=== PATIENT | female | born 1935 | race Caucasian/White ===

== ENCOUNTER → 2017-01-24 | Outpatient (CLI) | payer OTHER, MEDICARE ==
--- NOTE | 2017-01-24 15:22 | MAMMOGRAPHY REPORT ---
BILATERAL DIGITAL SCREENING MAMMOGRAM WITH CAD: 01/24/2017 CLINICAL HISTORY: Routine screening. TECHNIQUE: Current study was also evaluated with a Computer Aided Detection (CAD) system. Bilatera l CC and MLO views were obtained. COMPARISON: Comparison is made to exams dated: 01/24/2016 mammogram, 01/20/2015 mammogram, 01/17/2014 m ammogram, 01/14/2013 mammogram, 01/14/2012 mammogram, and 01/09/2011 mammogram - [facility] enter. BREAST COMPOSITION: The tissue of both breasts is heterogeneously dense, which may obscure small mas ses. FINDINGS: No suspicious masses, calcifications, or areas of architectural distortion are noted in ei ther breast. There has been no significant interval change compared to prior exams. Scattered bilater al benign-appearing calcifications are not significantly changed. A linear scar marker denotes a sca r on the left central breast. Bilateral asymmetries are stable. A biopsy marker clip is again noted within the left superior breast. IMPRESSION: ACR BI-RADS CATEGORY 2: BENIGN There is no mammographic evidence of malignancy. A 1 year screening mammogram is recommended. The pa tient will receive written notification of the results. Approximately 10% of breast cancers are not detected with mammography. A negative mammographic report should not delay biopsy if a clinically suggestive mass is present. Charisse Doherty M.D. /:01/24/2017 12:10:05 Third Loader: Mina GARCIA)(B[place]), [facility] letter sent: Normal 1/2 BI-RADS Code: ACR BI-RADS Category 2: Benign
== END | disposition home or self-care (01) ==
LOC: C.MAMM 10:54
PROVIDERS: ATTEND Internal Medicine
DX: Z12.31 Encounter for screening mammogram for malignant neoplasm of breast (principal)

== ENCOUNTER → 2017-06-18 | Outpatient (CLI) | payer OTHER, MEDICARE ==
[2017-06-18 17:26] LABS: ALT/SGPT 23 U/L (12-78); AST/SGOT 23 U/L (15-37); BLOOD UREA NITROGEN 17 mg/dl (7-18); CALCIUM 10.2 mg/dl (8.5-10.1); CARBON DIOXIDE 31 mmol/L (21-32); CHLORIDE 100 mmol/L (98-107); CHOLESTEROL 138 mg/dl (0-200); CREATININE 0.94 mg/dl (0.60-1.20); GLUCOSE 100 mg/dl (70-99); POTASSIUM 4.5 mmol/L (3.5-5.1); SODIUM 137 mmol/L (136-145); TRIGLYCERIDES 86 mg/dl (0-150); VERY LOW DENSITY LIPOPROT CALC 17 mg/dl
[2017-06-18 17:31] LABS: BASO % 0.3 %; BASO ABS # 0.02 K/uL (0-0.2); COMPLETE YES; EOS % 1.5 %; HEMATOCRIT 42.4 % (37-47); IG% 0.2 %; LYMPH % 25.1 %; LYMPH ABS # 1.67 K/uL (1.2-3.4); MEAN CORPUSCULAR HEMOGLOBIN 32.5 pg (25-34); MEAN CORPUSCULAR HGB CONC 32.5 g/dl (32-36); MEAN PLATELET VOLUME 9.7 fL (7.4-10.4); MONO % 7.7 %; NEUT % 65.2 %; PLATELET COUNT 221 K/uL (130-400); RED BLOOD COUNT 4.24 M/uL (4.2-5.4); WHITE BLOOD COUNT 6.65 K/uL (4.8-10.8)
[2017-06-18 17:42] LABS: ALB/GLOB RATIO 1.1 (0.9-2); ALKALINE PHOSPHATASE 76 U/L (45-117); HDL CHOLESTEROL 68 mg/dl; LDL CHOLESTEROL CALCULATED 53 mg/dl
[2017-06-19 06:52] LABS: ESTIMATED AVERAGE GLUCOSE 137 mg/dl; HA1C FLAG Normal (Normal)
== END | disposition home or self-care (01) ==
LOC: C.LABBC 13:44
PROVIDERS: ATTEND Internal Medicine
DX: I48.0 Paroxysmal atrial fibrillation (principal); M81.0 Age-related osteoporosis without current pathological fracture

== ENCOUNTER 2021-05-17 14:23 | Observation (INO) ==
[2021-05-17 14:51] LABS: Basophils # (auto) 0.03 K/uL (0-0.2); Basophils % (auto) 0.4 %; Eosinophils # (auto) 0.15 K/uL (0-0.5); Eosinophils % (auto) 1.9 %; Hematocrit (blood only) 34.2 % (37-47); Hemoglobin 10.6 g/dL (12.0-16.0); Immature Granulocytes # (auto) 0.01 K/uL (0.00-0.02); Immature Granulocytes % (auto) 0.1 %; Lymphocytes # (auto) 1.82 K/uL (1.2-3.4); Lymphocytes % (auto) 22.9 %; Mean Corpuscular Hemoglobin 27.5 pg (25-34); Mean Corpuscular Volume 88.6 fL (80-100); Mean Platelet Volume 8.8 fL (7.4-10.4); Monocytes # (auto) 0.53 K/uL (0.11-0.59); Monocytes % (auto) 6.7 %; Neutrophils # (auto) 5.42 K/uL (1.4-6.5); Platelet Count 283 K/uL (130-400); RDW Coefficient of Variation 17.3 % (11.5-14.5); RDW Standard Deviation 56.4 fL (36.4-46.3); Red Blood Count 3.86 M/uL (4.2-5.4); White Blood Count 7.96 K/uL (4.8-10.8)
[2021-05-17 15:07] LABS: BUN Creatinine Ratio 21.6 (10-20); Calcium 11.1 mg/dl (8.5-10.1); Creatinine Clr Calc Pharmacy 24.7 ml/min; Est GFR (African American) 54.1 ml/min; Est GFR (Non-African American) 46.6 ml/min; Potassium 4.2 mmol/L (3.5-5.1)
[2021-05-17 15:10] LABS: Bilirubin,Total 0.6 mg/dl (0.2-1)
--- NOTE | 2021-05-17 15:34 | Electrocardiogram Report ---
Test Reason : Blood Pressure : / mmHG Vent. Rate : 066 BPM Atrial Rate : 197 BPM P-R Int : 000 ms QRS Dur : 092 ms QT Int : 418 ms P-R-T Axes : 000 -08 068 degrees QTc Int : 438 ms Atrial fibrillation Incomplete right bundle branch block Cannot rule out Inferior infarct , age undetermined Abnormal ECG No previous ECGs available Confirmed by Deacon Mckeon ([id number]) on 05/17/2021 3:33:33 PM Referred By: Confirmed By:Deacon Mckeon
--- NOTE | 2021-05-17 15:52 | XRay Report ---
SINGLE VIEW CHEST CLINICAL HISTORY: Abnormal coagulation studies. Elevated INR. FINDINGS: An AP, portable, upright chest radiograph is compared to study dated 03/23/2007. The heart i s enlarged noting atherosclerotic calcification of the thoracic aorta. The pulmonary vasculature is n oncongested. Chronic interstitial thickening is similar to previous. There is bibasilar scarring/atel ectasis. No airspace consolidation or large pleural effusion is identified. No pneumothorax is seen. The skeletal structures are osteopenic. The bony thorax is grossly intact. IMPRESSION: Cardiomegaly with no acute cardiopulmonary abnormality. ACT 112: Negative or not required by law. Electronically signed by: Curt Bradley M.D. 05/17/2021 3:50 PM
[2021-05-17 15:53] LABS: INR > 10.7 (0.9-1.1); Partial Thromboplastin Time 78.3 Seconds (21.0-31.0); Prothrombin Time > 90.0 Seconds (9.0-12.0)
--- NOTE | 2021-05-17 16:22 | CT Scan Report ---
HEAD CT NONCONTRAST CT DOSE: 537.48 mGy.cm HISTORY: INR>10, dizzy TECHNIQUE: Multiaxial CT images of the head were performed without the use of intravenous contrast. A utomated exposure control was utilized for this study. A dose lowering technique was utilized adheri ng to the principles of ALARA. Comparison: None. Findings: The paranasal sinuses and mastoid air cells are clear. The calvarium and skull base are int act. There is no mass, hematoma, midline shift, acute infarct. White matter hypodensity is nonspecifi c but suggestive of microvascular ischemic change. The ventricles and sulci demonstrate mild age-rela scooter involutional changes. Old punctate lacunar infarct within the left cerebellar hemisphere. Impression: No acute intracranial abnormality. Atrophy and microvascular ischemic changes. ACT 112: Negative or not required by law. Electronically signed by: Bakari Méndez M.D. 05/17/2021 4:21 PM
[2021-05-17] MEDS ORDERED: PHYTONADIONE 5 MG in SODIUM CHLORIDE 0.9% 50 ML IV ONE (16:24)
--- NOTE | 2021-05-17 16:39 | Emergency Department Note ---
Impression & Plan Supratherapeutic INR, Contusion of oral cavity, initial encounter, Atrial fibrillation, Blood in mouth of unknown source ED Provider Note Provider: Hao Heredia MD DATE OF SERVICE: 05/17/2021 CHIEF COMPLAINT: Elevated blood levels HISTORY OF PRESENT ILLNESS: Patient is a 86-year-old female history of diabetes, paroxysmal atrial fibrillation on Coumadin, cognitive decline presenting after blood work today revealed a significantly elevated INR. 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 Over the last 2 to 3 months family members have been taking turns assisting her at her house where she lives by herself. They are working to get her into assisted living next week. They have been assisting her with her medications over the past month or 2. It does not appear that the patient's had any INR checks in approximately 10 months. Patient's also been having a little bruising of the left lower lip and they were concerned about a dental infection of one of her left lower teeth in this area and she is completing a week of penicillin today. Patient herself has memory deficits but is pleasant and no traumas been reported. Patient denies any pain at this time. Daughter reports the patient has been having some increased episodes of epistaxis over the last several weeks as well as some light pink hematuria over the weekend. Patient had cataract surgery without incident yesterday but has some bruising from the IV site in her arm. Patient has also been on 81 mg aspirin. REVIEW OF SYSTEMS: A total of 10 review of systems was obtained and negative except as stated above in the HPI. PAST MEDICAL HISTORY: As noted above MEDICATIONS: Reviewed home medications with the patient and her daughter SOCIAL HISTORY: Has been residing at home by herself more recently with some family assistance planning to move to assisted living next week PHYSICAL EXAM: GENERAL: alert and oriented in no acute distress on stretcher Head: normocephalic with some slight bruising of the left lower lip without large hematoma or laceration. EYES: No injection, discharge or icterus. No bleeding noted or subconjunctival hemorrhage. PERRL NECK: Trachea midline. Supple. ENT: Mucous membranes pink and moist with some slight red blood noted in the lower mouth but no clear source of active bleeding. Likely this is slowly oozing and there is some slight blood dripping from the corner of her mouth. Some contusions noted to the tongue but no clear laceration. Poor dentition in general with one of the left lower incisors in poor condition. LUNGS: Airway patent. No retractions. Breath sounds clear HEART: Regular rate and rhythm. No chest wall tenderness ABDOMEN: Soft and non-tender, without guarding or rebound. SKIN: Acyanotic, warm, dry EXTREMITIES: Without swelling, tenderness or deformity however with some bruising at the right AC from IV site yesterday NEUROLOGICAL: No focal deficits. No aphasia. No facial droop or slurred speech. Ambulatory. EK bpm atrial fibrillation. Incomplete right bundle branch block. No acute ST segment elevation noted. QTc 438. CONTINUOUS CARDIAC MONITORING: was ordered and showed a heart rate of 60s to 70s bpm in atrial fibrillation Patient's laboratory studies and imaging reviewed. Differential includes Infection, dehydration, metabolic abnormality, hypo/hyperglycemia, electrolyte disturbance, anemia, hypoxia, cardiac sources, intracerebral event, toxicologic, neurologic, as well as other pathologies. IMPRESSION/MEDICAL DECISION MAKING: Question some component of the recent antibiotic causing the iron elevation as well as lack of close testing of the INR is causing significant elevation. Patient does have little bit of slight blood oozing as well some bruising of the tongue noted in the mouth and some bruising of the lower lip. Unknown exact source that is slowly losing but is minimal and don't believe needs surgical intervention. Believe monitoring would be adequate. CT head without acute intracranial bleeding. There is some component of chronic dizziness from reading PCP notes in the past but likely no intracranial bleeding given this complaint and her elevated INR today. Patient's hemoglobin slightly dropped (compared to 02/14) but has been having episodes of hematuria and epistaxis at various points. Patient is stable at this point but a significant concerns regarding care at this time and concerns about her safety to go home. IV Vitamin K was given to help with reversal. No life-threatening bleed at this point so do not feel Kcentra is indicated with her age and underlying cardiac disease somewhat hesitant for FFP unless needed. Seems as the patient needs to closely reestablish care and INR monitoring. Do not see evidence of large dental abscess at this point in her mouth but a poorly looking left lower incisor; I doubt an abscess here but likely in require further dental care/likely extraction and may be source of infection in the future. Don't feel additional antibiotics are indicated at this time. Discussed with patient and daughter findings. Feel observation overnight given the situation may be in her best interest and the hospitalist was contacted. Daughter is quite hesitant about [place] home given the blood thinning and the blood oozing from her mouth at times. DIAGNOSIS: Elevated INR, tongue contusion, bloody mouth DISPOSITION: Hospitalist will evaluate Patient was agreeable with this plan. Past Med/Surg History Medical History Adult situational stress disorder Atrial flutter Cardiomyopathy, dilated, nonischemic Dementia occas forgetful and daughter is staying with her for a few weeks Esophageal dysmotility Hyperlipidemia Malnutrition daughter is staying with her and family is planning next step she can not be alone Mitral stenosis Osteoporosis Paroxysmal A-fib Type 2 diabetes mellitus Surgical History H/O colonoscopy H/O tooth extraction History of cataract surgery Family History Father Hypertension Gastric cancer Mother Hypertension Social History Smoking Status: Never smoker Second Hand Exposure: No; Hx Alcohol Use: No Hx Substance Use: No Preferred Language: Tristanian Communication Ability: Effective Visual Impairment: Limited Hearing Ability: Normal Escrow Clerk Required: No Beliefs That Will Affect Care: None marital status: Current Living Situation: Family Current Living Situation Comment: nephew lives with her downstairs but does not really pay attention current occupational status: retired Feels Safe at Home: Yes Childhood Exposure to Second-Hand Smoke: No caffeine: Yes Dental Care, Regularly: Yes Physical Activity Frequency: Does not Exercise Seatbelt Use: always Sunscreen Use: Yes Do you think of yourself as: straight/heterosexual Allergies Allergies Allergy/AdvReac Type Severity Reaction Status Date / Time simvastatin [From Zocor] Allergy Mild myalgia Verified 05/17/21 16:49 Home Meds Home Medications Medication Instructions Recorded Confirmed amoxicillin 500 mg capsule 500 mg PO .COMPLEX cap 04/15/19 05/17/21 calcium carbonate 600 mg (1,500 1 tab PO QAM tab 04/15/19 05/17/21 mg)-vitamin D3 200 unit tablet donepezil 5 mg tablet 5 mg PO QAM 04/12/21 05/17/21 furosemide 20 mg tablet 20 mg PO QAM 04/12/21 05/17/21 metoprolol succinate 100 mg 100 mg PO QAM 04/12/21 05/17/21 tablet,extended release 24 hr sertraline 25 mg tablet 25 mg PO QAM 04/12/21 05/17/21 metformin 500 mg tablet,extended 500 mg PO UD tab 04/18/21 05/17/21 release 24 hr aspirin 81 mg tablet,delayed 81 mg PO DAILY 05/17/21 05/17/21 release (Aspirin Low Dose) Previous Rx's Medication Instructions Recorded warfarin 5 mg tablet 5 mg PO .COMPLEX #90 tab 05/14/21 atorvastatin 20 mg tablet 10 mg PO QAM 7 Days #4 tab 05/16/21 Results & Data (ED) Vital Signs Vital Signs - 24 hr 05/17/21 14:32 05/17/21 15:39 05/17/21 15:45 Temperature 36.0 C L Temperature Source Oral Pulse Rate 67 59 L 65 Pulse Rate from SpO2 Sensor 57 L 61 Pulse Rhythm Regular Respiratory Rate 18 20 26 H Respiratory Effort / Characteristics Non-Labored Respiratory Depth Normal Blood Pressure 145/75 H Blood Pressure Mean 98 Pulse Oximetry 100 98 98 Sepsis Recent Fever Within 48 Hours No Sepsis New/Unexplained Change in Mental Status N/A Sepsis Action Taken by Nursing No Action Required 05/17/21 16:00 05/17/21 16:20 05/17/21 16:30 Temperature Temperature Source Pulse Rate 68 76 74 Pulse Rate from SpO2 Sensor 67 76 Pulse Rhythm Respiratory Rate 20 18 11 L Respiratory Effort / Characteristics Respiratory Depth Blood Pressure Blood Pressure Mean Pulse Oximetry 98 94 Sepsis Recent Fever Within 48 Hours Sepsis New/Unexplained Change in Mental Status Sepsis Action Taken by Nursing 05/17/21 16:45 05/17/21 17:00 05/17/21 17:15 Temperature 36.8 C Temperature Source Pulse Rate 69 61 70 Pulse Rate from SpO2 Sensor 65 68 62 Pulse Rhythm Respiratory Rate 22 18 15 Respiratory Effort / Characteristics Respiratory Depth Blood Pressure 126/73 Blood Pressure Mean 90 Pulse Oximetry 95 94 98 Sepsis Recent Fever Within 48 Hours Sepsis New/Unexplained Change in Mental Status Sepsis Action Taken by Nursing 05/17/21 17:30 05/17/21 17:45 Temperature 36.8 C Temperature Source Pulse Rate 65 67 Pulse Rate from SpO2 Sensor 66 Pulse Rhythm Respiratory Rate 15 17 Respiratory Effort / Characteristics Respiratory Depth Blood Pressure 157/55 H Blood Pressure Mean 89 Pulse Oximetry 97 Sepsis Recent Fever Within 48 Hours Sepsis New/Unexplained Change in Mental Status Sepsis Action Taken by Nursing Laboratory Data Result diagrams: 05/17/21 14:44 05/17/21 14:44 Lab Results 05/17/21 05/17/21 05/17/21 Range/Units 14:44 14:44 14:44 WBC 7.96 (4.8-10.8) K/uL RBC 3.86 L (4.2-5.4) M/uL Hgb 10.6 L (12.0-16.0) g/dL Hct 34.2 L (37-47) % MCV 88.6 (80-100) fL MCH 27.5 (25-34) pg MCHC 31.0 L (32-36) g/dL RDW Std Deviation 56.4 H (36.4-46.3) fL RDW Coeff of Marley 17.3 H (11.5-14.5) % Plt Count 283 (130-400) K/uL MPV 8.8 (7.4-10.4) fL Immature Gran % (Auto) 0.1 % Neut % (Auto) 68.0 % Lymph % (Auto) 22.9 % Crook % (Auto) 6.7 % Eos % (Auto) 1.9 % Baso % (Auto) 0.4 % Neut # (Auto) 5.42 (1.4-6.5) K/uL Lymph # (Auto) 1.82 (1.2-3.4) K/uL Crook # (Auto) 0.53 (0.11-0.59) K/uL Eos # (Auto) 0.15 (0-0.5) K/uL Baso # (Auto) 0.03 (0-0.2) K/uL Immature Gran # (Auto) 0.01 (0.00-0.02) K/uL PT > 90.0 H (9.0-12.0) Seconds INR > 10.7 H* (0.9-1.1) APTT 78.3 H* (21.0-31.0) Seconds PTT Ratio 3.0 Sodium 137 (136-145) mmol/L Potassium 4.2 (3.5-5.1) mmol/L Chloride 100 (98-107) mmol/L Carbon Dioxide 29 (21-32) mmol/L Anion Gap 8.0 (3-11) BUN 23 H (7-18) mg/dl Creatinine 1.07 (0.6-1.2) mg/dl Est Cr Clr Drug Dosing 24.7 ml/min Est GFR ( Amer) 54.1 ml/min Est GFR (Non-Af Amer) 46.6 ml/min BUN/Creatinine Ratio 21.6 H (10-20) Glucose 136 H (70-99) mg/dl Calcium 11.1 H (8.5-10.1) mg/dl Total Bilirubin 0.6 (0.2-1) mg/dl AST 36 (15-37) U/L ALT 34 (12-78) U/L Alkaline Phosphatase 64 (45-117) U/L Total Protein 8.0 (6.4-8.2) gm/dl Albumin 4.0 (3.4-5.0) gm/dl Globulin 4.0 (2.5-4.0) gm/dl Albumin/Globulin Ratio 1.0 (0.9-2) TSH 1.850 (0.300-4.500) uIu/ml COVID-19 Eval Order SARS-CoV-2 (PCR) (Negative) 05/17/21 05/17/21 Range/Units 16:41 16:41 WBC (4.8-10.8) K/uL RBC (4.2-5.4) M/uL Hgb (12.0-16.0) g/dL Hct (37-47) % MCV (80-100) fL MCH (25-34) pg MCHC (32-36) g/dL RDW Std Deviation (36.4-46.3) fL RDW Coeff of Marley (11.5-14.5) % Plt Count (130-400) K/uL MPV (7.4-10.4) fL Immature Gran % (Auto) % Neut % (Auto) % Lymph % (Auto) % Crook % (Auto) % Eos % (Auto) % Baso % (Auto) % Neut # (Auto) (1.4-6.5) K/uL Lymph # (Auto) (1.2-3.4) K/uL Crook # (Auto) (0.11-0.59) K/uL Eos # (Auto) (0-0.5) K/uL Baso # (Auto) (0-0.2) K/uL Immature Gran # (Auto) (0.00-0.02) K/uL PT (9.0-12.0) Seconds INR (0.9-1.1) APTT (21.0-31.0) Seconds PTT Ratio Sodium (136-145) mmol/L Potassium (3.5-5.1) mmol/L Chloride (98-107) mmol/L Carbon Dioxide (21-32) mmol/L Anion Gap (3-11) BUN (7-18) mg/dl Creatinine (0.6-1.2) mg/dl Est Cr Clr Drug Dosing ml/min Est GFR ( Amer) ml/min Est GFR (Non-Af Amer) ml/min BUN/Creatinine Ratio (10-20) Glucose (70-99) mg/dl Calcium (8.5-10.1) mg/dl Total Bilirubin (0.2-1) mg/dl AST (15-37) U/L ALT (12-78) U/L Alkaline Phosphatase (45-117) U/L Total Protein (6.4-8.2) gm/dl Albumin (3.4-5.0) gm/dl Globulin (2.5-4.0) gm/dl Albumin/Globulin Ratio (0.9-2) TSH (0.300-4.500) uIu/ml COVID-19 Eval Order Covid19 at [facility] SARS-CoV-2 (PCR) NEGATIVE (Negative) Administered Medications Discontinued Medications Phytonadione 5 mg/ Sodium (Chloride) 50.5 mls @ 101 mls/hr IV ONE ONE Stop: 05/17/21 16:53 Last Infusion: 05/17/21 17:54 Dose: 0 mls/hr Documented by: [id number] Admin: 05/17/21 17:20 Dose: 101 mls/hr Documented by: [id number] Imaging Data Radiologist's Impression: Chest X-Ray 05/17/21 14:38 SINGLE VIEW CHEST CLINICAL HISTORY: Abnormal coagulation studies. Elevated INR. FINDINGS: An AP, portable, upright chest radiograph is compared to study dated 03/23/2007. The heart is enlarged noting atherosclerotic calcification of the thoracic aorta. The pulmonary vasculature is noncongested. Chronic interstitial thickening is similar to previous. There is bibasilar scarring/atelectasis. No airspace consolidation or large pleural effusion is identified. No pneumothorax is seen. The skeletal structures are osteopenic. The bony thorax is grossly intact. IMPRESSION: Cardiomegaly with no acute cardiopulmonary abnormality. ACT 112: Negative or not required by law. Electronically signed by: Curt Bradley M.D. 05/17/2021 3:[address] 05/17/21 15:[address] DOSE: 537.48 mGy.cm HISTORY: INR>10, dizzy TECHNIQUE: Multiaxial CT images of the head were performed without the use of intravenous contrast. Automated exposure control was utilized for this study. A dose lowering technique was utilized adhering to the principles of ALARA. Comparison: None. Findings: The paranasal sinuses and mastoid air cells are clear. The calvarium and skull base are intact. There is no mass, hematoma, midline shift, acute infarct. White matter hypodensity is nonspecific but suggestive of microvascular ischemic change. The ventricles and sulci demonstrate mild age-related involutional changes. Old punctate lacunar infarct within the left cerebellar hemisphere. Impression: No acute intracranial abnormality. Atrophy and microvascular ischemic changes. ACT 112: Negative or not required by law. Electronically signed by: Bakari Méndez M.D. 05/17/2021 4:21 PM Discharge Plan Visit Data Chief Complaint: Abnormal Labs/Diagnostic Testing Stated Complaint: ELEVATED INR 10.7 ED Provider: Hao Heredia Discharge Problem: Supratherapeutic INR, Contusion of oral cavity, initial encounter, Atrial fibrillation, Blood in mouth of unknown source Patient Disposition: Being Evaluated by Hospitalist Forms Stand Alone Forms: My [facility] [employer] Prescriptions Prescriptions: No Action warfarin 5 mg tablet 5 mg PO .COMPLEX Qty: 90 RF: 3 atorvastatin 20 mg tablet 10 mg PO QAM 7 Days Qty: 4 RF: 0 calcium carbonate-vitamin D3 600 mg(1,500mg) -200 unit tablet 1 tab PO QAM RF: 0 amoxicillin 500 mg capsule 500 mg PO .COMPLEX RF: 0 metformin 500 mg tablet extended release 24 hr 500 mg PO UD RF: 0 donepezil 5 mg tablet 5 mg PO QAM RF: 0 metoprolol succinate 100 mg tablet extended release 24 hr 100 mg PO QAM RF: 0 sertraline 25 mg tablet 25 mg PO QAM RF: 0 furosemide 20 mg tablet 20 mg PO QAM RF: 0 aspirin [Aspirin Low Dose] 81 mg Tablet,Delayed Release (Dr/Ec) 81 mg PO DAILY RF: 0 Referrals Referrals: Rohan Worthy MD [Primary Care Provider] - Discharge Problem: Atrial fibrillation Qualifiers: Atrial fibrillation type: unspecified Qualified Code(s): I48.91 - Unspecified atrial fibrillation
[2021-05-17 16:42] LABS: Thyroid Stimulating Hormone 1.85 uIu/ml (0.300-4.500)
--- NOTE | 2021-05-17 17:44 | History & Physical Report ---
Date of Service May 17, 2021 Assessment & Plan (1) Supratherapeutic INR: Plan: 86 y/o female w/ pAF on warfarin who presents w/ supratherapeutic INR 10, mostly asymptomatic. Stable. - recent course of amox may be contributory. Patient also has not checked INR in 10 months. - monitor clinically. check INR in AM. If worsened INR or new symptoms recheck cbc and consider Kcentra. Kcentra deferred because of CHF and age. - fall precautions - hold home baby asa. (2) Atrial fibrillation: Plan: - hold home warfarin. follow CBC, INR - continue home regimen for rate control (3) Dysphagia, oropharyngeal phase: Plan: - chronic, per patient's daughter, no concerns for aspiration (4) Type 2 diabetes mellitus: Plan: - last A1c 8.1 02/20/21. BSGs 136 this admission - AM labs and check BSG qhs - continue home metformin (5) Status post cataract surgery: Plan: - 05/16/21 L cataract surgery - eye shield while sleeping - Hnnr-Vwnr-Mmyrm 1/0.5/0.1% 4 times a day for first week after the surgery (6) Dental infection: Plan: - noted on exam. mild. completed abx course - pain is controlled. denies pain. (7) Contusion of oral cavity, initial encounter: Plan: - noted on exam. mild. (8) Hyperparathyroidism: Plan: - slightly elevated Ca, stable. CMP in AM (9) Cardiomyopathy, dilated, nonischemic: Plan: - chronic, stable; no chest pain and not hypervolemic on exam - Strict Is and Os. Monitor volume status clinically and avoid volume overload. - 04/24/21 echo w/ EF 35%, moderate MS, moderate MR. Inferoposterior akinesis at base and mid ventricular level. No significant change overall from 05/17/19 echo. - check trop in AM (10) Dementia: Plan: - continue home Donezepil (11) Hyperlipidemia: Plan: - continue home statin (12) Malnutrition: Plan: - dietary consult Plan: FEN/GI: DM2 diet, soft, easy to chew. No IV fluids. code: full ppx: SCDs only. Hold chemoppx. dispo: med/surg tele. PT/OT dispo planning (directly to assisted living? vs short term SNF/rehab) History of Present Illness Chief Complaint: elevated INR Primary Care Provider: Rohan Worthy MD Xenia Tee is an 86 y/o female w/ PMHx of DM2, pAF on 5mg daily warfarin, ischemic CMP, hyperparathyroidism, and mild cognitive impairment who presents w/ supratherapeutic INR to >10.7 noted at outpatient lab today. Her INR was last checked 10 months ago and she just finished a 7 day course of amoxicillin for dental infection today. Patient has been relatively asymptomatic. She has had months of mild intermittent epistaxis. Last week, she had some pink-tinged urine. She also noted some bruising at her lip and some minor bleeding of her lip x 1 week, but does have an ongoing dental infection. No bloody stool/melena or hematopsysis. No pain in her mouth. Last warfarin (5 mg daily) and home meds was this AM. She has had several months of progressive poor care of self. Has had family members alternate taking care of her x 2 months (17/02 care), so she has not missed any medications. Patient has as assisted living arranged and plans to move as early as next week. Has wheeled walker at home and endorses some chronic malnutrition and physical deconditioning. She has had mild fatigue x 1 week, but otherwise feels well and denies other complaints. Hx was obtained from patient and daughter at bedside. ED course: s/p vit K 5mg IV. Allergies Allergy/AdvReac Type Severity Reaction Status Date / Time simvastatin [From Zocor] Allergy Mild myalgia Verified 05/17/21 16:49 Home Medications Medication Instructions Recorded Confirmed Type amoxicillin 500 mg capsule 500 mg PO .COMPLEX cap 04/15/19 05/17/21 History calcium carbonate 600 mg (1,500 1 tab PO QAM tab 04/15/19 05/17/21 History mg)-vitamin D3 200 unit tablet donepezil 5 mg tablet 5 mg PO QAM 04/12/21 05/17/21 History furosemide 20 mg tablet 20 mg PO QAM 04/12/21 05/17/21 History metoprolol succinate 100 mg 100 mg PO QAM 04/12/21 05/17/21 History tablet,extended release 24 hr sertraline 25 mg tablet 25 mg PO QAM 04/12/21 05/17/21 History metformin 500 mg tablet,extended 500 mg PO UD tab 04/18/21 05/17/21 History release 24 hr warfarin 5 mg tablet 5 mg PO .COMPLEX #90 tab 05/14/21 05/17/21 Rx atorvastatin 20 mg tablet 10 mg PO QAM 7 Days #4 tab 05/16/21 05/17/21 Rx aspirin 81 mg tablet,delayed 81 mg PO DAILY 05/17/21 05/17/21 History release (Aspirin Low Dose) Past Med/Surg History Medical History Adult situational stress disorder Atrial flutter Cardiomyopathy, dilated, nonischemic Dementia occas forgetful and daughter is staying with her for a few weeks Esophageal dysmotility Hyperlipidemia Malnutrition daughter is staying with her and family is planning next step she can not be alone Mitral stenosis Osteoporosis Paroxysmal A-fib Type 2 diabetes mellitus Surgical History H/O colonoscopy H/O tooth extraction History of cataract surgery Family History Father Hypertension Gastric cancer Mother Hypertension Social History Smoking Status: Never smoker Second Hand Exposure: No; Do You Dip or Chew Tobacco: No; Hx Alcohol Use: No Hx Substance Use: No Preferred Language: Yakut Communication Ability: Effective Visual Impairment: Limited Hearing Ability: Normal Breakfast And Room Attendant Required: No Beliefs That Will Affect Care: None marital status: Current Living Situation: Alone Current Living Situation Comment: nephew lives with her downstairs but does not really pay attention current occupational status: retired Other Information That Helps Us Care for You: No Feels Safe at Home: Yes Safety Concerns: Feels Safe At This Time Childhood Exposure to Second-Hand Smoke: No caffeine: Yes Dental Care, Regularly: Yes Physical Activity Frequency: Does not Exercise Seatbelt Use: always Sunscreen Use: Yes Do you think of yourself as: straight/heterosexual Assistive Devices: Cane Review of Systems Review of Systems: All systems reviewed & are unremarkable except as noted in HPI & below Constitutional: Denies fever, chills Eyes: Denies blurry vision, vision changes ENT: Denies sore throat, sinus pain Cardiovascular: Denies chest pain, palpitations Respiratory: Denies shortness of breath Gastrointestinal: Denies abdominal pain, nausea, vomiting, constipation, diarrhea Genitourinary: Denies urinary symptoms including dysuria Musculoskeletal: Denies weakness, muscle aches/pain, joint aches/pain Neurological: Denies headache, numbness, tingling, focal weakness Physical Exam Physical Exam: General: Grossly A&Ox3 (forgot context). NAD. Cooperative. Does not appear confused. Frail/thin habitus. Chest wall rib bones visible. HEENT: Atraumatic, normocephalic. EOMI. Mild ecchymosis at lower left lip. Mild dried blood at right lower lip edge. Poor dentition. L lower mouth has tooth w/ bottom part of tooth w/ white discoloration. L upper tooth has black color/darkening. No pain w/ palpation of jaw. Pulm: CTAB. -wheezes, -rales, -rhonchi. No respiratory distress. Cardiac: IIR,, not tachycardic. -mrg. Radial pulses intact and symmetrical. No LE edema, very trace Abdominal: Nontender, nondistended, soft. Neuro: CN II-XII intact. Normal strength of extremities. Results & Data Results & Data ([facility]) Vital Signs (Past 12 Hours) Vital Signs Temp Pulse Resp BP Pulse Ox 05/17/21 14:32 36.0 C L 67 18 145/75 H 100 Laboratory Results labs: no leukocytosis. Hb 10.6 vs 12.2 02/20/21. Plts ok 283. INR 10.7. electrolytes ok. Ca 11.1H. liver panel wnl. TSH wnl. covid neg. UA ordered Cardiac Enzymes 05/17/21 Range/Units 14:44 AST 36 (15-37) U/L Coagulation 05/17/21 Range/Units 14:44 PT > 90.0 H (9.0-12.0) Seconds APTT 78.3 H* (21.0-31.0) Seconds CBC 05/17/21 Range/Units 14:44 WBC 7.96 (4.8-10.8) K/uL RBC 3.86 L (4.2-5.4) M/uL Hgb 10.6 L (12.0-16.0) g/dL Hct 34.2 L (37-47) % Plt Count 283 (130-400) K/uL Neut # (Auto) 5.42 (1.4-6.5) K/uL Lymph # (Auto) 1.82 (1.2-3.4) K/uL [place] # (Auto) 0.53 (0.11-0.59) K/uL Eos # (Auto) 0.15 (0-0.5) K/uL Baso # (Auto) 0.03 (0-0.2) K/uL Comprehensive Metabolic Panel 05/17/21 Range/Units 14:44 Sodium 137 (136-145) mmol/L Potassium 4.2 (3.5-5.1) mmol/L Chloride 100 (98-107) mmol/L Carbon Dioxide 29 (21-32) mmol/L BUN 23 H (7-18) mg/dl Creatinine 1.07 (0.6-1.2) mg/dl Glucose 136 H (70-99) mg/dl Calcium 11.1 H (8.5-10.1) mg/dl AST 36 (15-37) U/L ALT 34 (12-78) U/L Alkaline Phosphatase 64 (45-117) U/L Total Protein 8.0 (6.4-8.2) gm/dl Albumin 4.0 (3.4-5.0) gm/dl Intake and Output 05/17/21 05/17/21 05/17/21 06:59 14:59 22:59 Intake Total 50.5 / 50.5 Balance 50.5 / 50.5 Intake: IV 50.5 / 50.5 Phytonadione 5 mg In Sodium 50.5 / 50.5 Chloride 0.9% 50 ml @ 101 mls/ hr IV ONE ONE Rx#:[id number] Other: Weight 42.3 kg Patient Weight 05/18/21 06:59 Weight 42.3 kg Diagnostic Findings Chest X-Ray 05/17/21 14:38 SINGLE VIEW CHEST CLINICAL HISTORY: Abnormal coagulation studies. Elevated INR. FINDINGS: An AP, portable, upright chest radiograph is compared to study dated 03/23/2007. The heart is enlarged noting atherosclerotic calcification of the thoracic aorta. The pulmonary vasculature is noncongested. Chronic interstitial thickening is similar to previous. There is bibasilar scarring/atelectasis. No airspace consolidation or large pleural effusion is identified. No pneumothorax is seen. The skeletal structures are osteopenic. The bony thorax is grossly i ntact. IMPRESSION: Cardiomegaly with no acute cardiopulmonary abnormality. ACT 112: Negative or not required by law. Electronically signed by: Curt Bradley M.D. 05/17/2021 3:[address] 05/17/21 15:[address] CT DOSE: 537.48 mGy.cm HISTORY: INR>10, dizzy TECHNIQUE: Multiaxial CT images of the head were performed without the use of i ntravenous contrast. Automated exposure control was utilized for this study. A dose lowering technique was utilized adhering to the principles of ALARA. Comparison: None. Findings: The paranasal sinuses and mastoid air cells are clear. The calvarium and skull base are intact. There is no mass, hematoma, midline shift, acute infarct. White matter hypodensity is nonspecific but suggestive of microvascular ischemic change. The ventricles and sulci demonstrate mild age-related involutional changes. Old punctate lacunar infarct within the left cerebellar hemisphere. Impression: No acute intracranial abnormality. Atrophy and microvascular ischemic changes. ACT 112: Negative or not required by law. Electronically signed by: Bakari Méndez M.D. 05/17/2021 4:21 PM ECG Additional Comments: Vent. Rate : 066 BPM Atrial Rate : 197 BPM P-R Int : 000 ms QRS Dur : 092 ms QT Int : 418 ms P-R-T Axes : 000 -08 068 degrees QTc Int : 438 ms Atrial fibrillation Incomplete right bundle branch block Cannot rule out Inferior infarct , age undetermined Abnormal ECG No previous ECGs available Confirmed by Deacon Mckeon ([id number]) on 05/17/2021 3:33:33 PM Code Status & VTE Plan Code Status full VTE Prophylaxis Plan VTE Prophylaxis will be ordered: Yes Reason for no VTE drug order: Contraindicated Supervising Physician Co-Signing Physician Notes 86 yo female is seen and examined at bedside. During face to face encounter with patient, obtained a history and physical examination. Discussed case with Dr. Contreras and answered all of the patient's questions. I reviewed above note and agree with it. Patient will be admitted with a supratherapeutic INR. Patient will closely monitor hemoglobin. Will not reorder any vitamin K. will need to discuss with case resolution specialist and family if she has enough support at home. May need to have family handle her medications due to short term memory issures. Resident Activity Tracking Resident Involvement: Resident Care Provided Care Provided: Adult Hospital Medicine (1) Atrial fibrillation Atrial fibrillation type: unspecified Qualified Code(s): I48.91 - Unspecified atrial fibrillation
[2021-05-17] MEDS ORDERED: ACETAMINOPHEN 325 MG TAB PO PRN (23:21)
[2021-05-17] MEDS ORDERED: POLYETHYLENE (MIRALAX) 17 GM PACK PO PRN (23:21)
[2021-05-17] MEDS ORDERED: ONDANSETRON INJ 2 MG/ML 2 ML VIAL IV PRN (23:21)
[2021-05-17] MEDS: NON-FORMULARY MEDICATION SCH (23:42)
[2021-05-18] MEDS: NON-FORMULARY MEDICATION SCH ×3 (06:32→18:02)
[2021-05-18 08:29] LABS: Basophils # (auto) 0.03 K/uL (0-0.2); Basophils % (auto) 0.4 %; Eosinophils # (auto) 0.18 K/uL (0-0.5); Eosinophils % (auto) 2.4 %; Hematocrit (blood only) 29.5 % (37-47); Hemoglobin 9.1 g/dL (12.0-16.0); Lymphocytes # (auto) 1.31 K/uL (1.2-3.4); Lymphocytes % (auto) 17.4 %; Mean Corpuscular Hemoglobin 27.6 pg (25-34); Mean Corpuscular Hgb Conc 30.8 g/dL (32-36); Mean Corpuscular Volume 89.4 fL (80-100); Mean Platelet Volume 8.8 fL (7.4-10.4); Monocytes # (auto) 0.52 K/uL (0.11-0.59); Monocytes % (auto) 6.9 %; Neutrophils # (auto) 5.47 K/uL (1.4-6.5); Neutrophils % (auto) 72.9 %; Platelet Count 243 K/uL (130-400); RDW Coefficient of Variation 17.4 % (11.5-14.5); RDW Standard Deviation 57.2 fL (36.4-46.3); White Blood Count 7.51 K/uL (4.8-10.8)
[2021-05-18 08:42] LABS: INR 1.7 (0.9-1.1); Partial Thromboplastin Ratio 1.2; Partial Thromboplastin Time 31.3 Seconds (21.0-31.0); Prothrombin Time 16.6 Seconds (9.0-12.0)
[2021-05-18] MEDS ORDERED: FUROSEMIDE 20 MG TAB PO SCH (09:00)
[2021-05-18] MEDS ORDERED: METOPROLOL SUCC 25MG EXT REL TAB PO SCH (09:00)
[2021-05-18] MEDS ORDERED: DONEPEZIL HCL 5 MG TAB PO SCH (09:00)
[2021-05-18] MEDS ORDERED: metFORMIN HCL ER 500 MG TABCR PO SCH ×2 (09:00→17:00)
[2021-05-18] MEDS ORDERED: ATORVASTATIN 10 MG TAB PO SCH (09:00)
[2021-05-18] MEDS ORDERED: SERTRALINE HCL 50 MG TABLET PO SCH (09:00)
[2021-05-18 09:15] LABS: Alanine Aminotransferase 25 U/L (12-78); Albumin Globulin Ratio 0.9 (0.9-2); Albumin Level 2.9 gm/dl (3.4-5.0); Alkaline Phosphatase 53 U/L (45-117); Aspartate Aminotransferase 27 U/L (15-37); BUN Creatinine Ratio 24.7 (10-20); Bilirubin,Total 1.1 mg/dl (0.2-1); Blood Urea Nitrogen 19 mg/dl (7-18); Calcium 9.4 mg/dl (8.5-10.1); Carbon Dioxide 26 mmol/L (21-32); Chloride 105 mmol/L (98-107); Creatinine Clr Calc Pharmacy 36.3 ml/min; Est GFR (African American) 83.1 ml/min; Est GFR (Non-African American) 71.7 ml/min; Globulin 3.3 gm/dl (2.5-4.0); Glucose 123 mg/dl (70-99); Magnesium 1.8 mg/dl (1.8-2.4); Phosphorus 1.7 mg/dl (2.5-4.9); Potassium 4.3 mmol/L (3.5-5.1); Sodium 138 mmol/L (136-145); Total Protein 6.2 gm/dl (6.4-8.2); Troponin I < 0.015 ng/ml (0-0.045)
--- NOTE | 2021-05-18 11:11 | Billing Data ---
Date of Service May 17, 2021 Coding Level of Care Code INT OBSERVATION CARE 70M LVL 3
--- NOTE | 2021-05-18 18:53 | Oral/Maxillofacial Consult ---
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 Patient's also been having a little bruising of the left lower lip and they were concerned about a dental infection of one of her left lower teeth in this area and she is completing a week of penicillin today. Patient herself has memory deficits but is pleasant and no traumas been reported. Patient denies any pain at this time. Daughter reports the patient has been having some increased episodes of epistaxis over the last several weeks as well as some light pink hematuria over the weekend. Patient had cataract surgery without incident yesterday but has some bruising from the IV site in her arm. Patient has also been on 81 mg aspirin. About a week ago he developed ecchymosis of the left face and lip, while visiting her sister. As a result she was taken to a local dentist who diagnosis an abscess of # 13. There was never any dental pain, drainage according the the daughter # 13 is abscess and MUST be removed PRANEETH. She came to the ED yesterday after finding out her INR was over 10. I was consulted to manage the case. Oral Exam: Finding--no evidence of infection pain, bleeding. Imaging: not avalable Soft tissue: floor of the mouth, tongue, hard/soft palate, posterior pharyngeal area all with in normal limits, no pathology or abnormal findings noted. No lesions noted that require follow up or Bx. Slight ecchymosis of the lower left lip No fistula Oral Care: Overall oral care is fair Occlusion: Class I with missing and irregular teeth TMJ exam: No pop, clicking, pain, good ROM, No history of TMJ injury or dysfunction Periodontal exam: Healthy gingival tissue with moderate evidence of periodontal pathology and extensive recession and bone loss Head/Neck exam: Neck is supple, FROM, Able to extend and flex neck w/o difficulty, no masses, no abnormalities, no airway issues, no evidence of sleep apnea. Treatment Plan: I strongly suggested that we take things SLOW Start with a comprehensive full dental exam by her dentist Dr Alexandro Zeng. Full dental x rays and based on the clinical and X Ray analysis develop a treatment plan. Xenia must get her INR under control before any non emergence dental procedures. Once she is stable from a medical point of view and the dental plan is finalized If # 13 needs to be extracted this can be easily done in the office with local anesthesia and INR management with the [facility]. I see no need to keep her on antibiotics unless she developers pain or swelling. Her daughter has my contact information and will keep me in the loop once the dental exam if completed. I reviewed the treatment plan and consent with the patient and her daughter. Understanding was expressed. Time was given for questions regarding the dental treatment and possible extraction, risks and post op care. Discussed alternative to treatment--endo to save the tooth vs extraction Risks discussed: Bleeding,Pain,swelling,infection, dry socket, delayed healing, nerve injury to face,lips,tongue,chin area which could be permanent (rare). TMJ, jaw stiffness, change in bite (rare), ear pain (referred). Sinus problems like fistula or infection. Need to leave a small root fragment in place to avoid injury to nerve or sinus. Relationship of wisdom teeth to nerve/sinus and risk of jaw fracture. OK for discharge from hospital I gave the family information regarding a suggested treatment plan Obtaining a comprehensive dental exam is of utmost importance before any treatment is considered given that the patient has NO SYMPTOMS OR DENTAL PAIN Allergies Allergy/AdvReac Type Severity Reaction Status Date / Time simvastatin [From Zocor] Allergy Mild myalgia Verified 05/17/21 16:49 Home Medications Medication Instructions Recorded Confirmed Type amoxicillin 500 mg capsule 500 mg PO .COMPLEX cap 04/15/19 05/17/21 History calcium carbonate 600 mg (1,500 1 tab PO QAM tab 04/15/19 05/17/21 History mg)-vitamin D3 200 unit tablet donepezil 5 mg tablet 5 mg PO QAM 04/12/21 05/17/21 History furosemide 20 mg tablet 20 mg PO QAM 04/12/21 05/17/21 History metoprolol succinate 100 mg 100 mg PO QAM 04/12/21 05/17/21 History tablet,extended release 24 hr sertraline 25 mg tablet 25 mg PO QAM 04/12/21 05/17/21 History metformin 500 mg tablet,extended 500 mg PO UD tab 04/18/21 05/17/21 History release 24 hr warfarin 5 mg tablet 5 mg PO .COMPLEX #90 tab 05/14/21 05/17/21 Rx atorvastatin 20 mg tablet 10 mg PO QAM 7 Days #4 tab 05/16/21 05/17/21 Rx aspirin 81 mg tablet,delayed 81 mg PO DAILY 05/17/21 05/17/21 History release (Aspirin Low Dose) Patient History Medical History Adult situational stress disorder Atrial flutter Cardiomyopathy, dilated, nonischemic Dementia occas forgetful and daughter is staying with her for a few weeks Esophageal dysmotility Hyperlipidemia Malnutrition daughter is staying with her and family is planning next step she can not be alone Mitral stenosis Osteoporosis Paroxysmal A-fib Type 2 diabetes mellitus Surgical History H/O colonoscopy H/O tooth extraction History of cataract surgery Family History Father Hypertension Gastric cancer Mother Hypertension Social History Smoking Status: Never smoker Second Hand Exposure: No; Do You Dip or Chew Tobacco: No; Hx Alcohol Use: No Hx Substance Use: No Preferred Language: Faroese Communication Ability: Effective Visual Impairment: Limited Hearing Ability: Normal Urban Designer Required: No Beliefs That Will Affect Care: None marital status: Current Living Situation: Alone Current Living Situation Comment: nephew lives with her downstairs but does not really pay attention current occupational status: retired How many Children do You have: 6 Other Information That Helps Us Care for You: No Feels Safe at Home: Yes Safety Concerns: Feels Safe At This Time Childhood Exposure to Second-Hand Smoke: No caffeine: Yes Dental Care, Regularly: Yes Physical Activity Frequency: Does not Exercise Seatbelt Use: always Sunscreen Use: Yes Do you think of yourself as: straight/heterosexual Assistive Devices: Cane and Wheelchair Results & Data ([facility]) Vital Signs (Past 12 Hours) Vital Signs Temp Pulse Pulse Resp BP BP Pulse Ox 05/18/21 15:13 37 C 61 16 131/73 93 05/18/21 14:17 62 05/18/21 11:16 36.7 C 65 16 100/55 L 90 05/18/21 07:26 36.9 C 74 16 112/66 91 PG Care Time/CCT Total # of Minutes Spent Total Time Spent with Patient: Total time spent is greater than 50% in coordination of care (as documented) at patient's floor/unit and/or counseling patient: Coding Level of Care Code 98768 Initial Inpt Care Lvl 3 Diagnoses Supratherapeutic INR 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
--- NOTE | 2021-05-18 19:26 | Discharge Summary ---
Date of Service May 18, 2021 Admission HPI Per Admitting Provider Xenia Tee is an 86 y/o female w/ PMHx of DM2, pAF on 5mg daily warfarin, ischemic CMP, hyperparathyroidism, and mild cognitive impairment who presents w/ supratherapeutic INR to >10.7 noted at outpatient lab today. Her INR was last checked 10 months ago and she just finished a 7 day course of amoxicillin for dental infection today. Patient has been relatively asymptomatic. She has had months of mild intermittent epistaxis. Last week, she had some pink-tinged urine. She also noted some bruising at her lip and some minor bleeding of her lip x 1 week, but does have an ongoing dental infection. No bloody stool/melena or hematopsysis. No pain in her mouth. Last warfarin (5 mg daily) and home meds was this AM. She has had several months of progressive poor care of self. Has had family members alternate taking care of her x 2 months (17/02 care), so she has not missed any medications. Patient has as assisted living arranged and plans to move as early as next week. Has wheeled walker at home and endorses some chronic malnutrition and physical deconditioning. She has had mild fatigue x 1 week, but otherwise feels well and denies other complaints. Hx was obtained from patient and daughter at bedside. ED course: s/p vit K 5mg IV. Principal Diagnosis Supratherapeutic INR, Dental Infection Discharge Exam Respiratory No respiratory distress Cardiovascular Normal heart rate Psychiatric A+Ox3, euthymic affect Discharge Data Allergies Allergy/AdvReac Type Severity Reaction Status Date / Time simvastatin [From Zocor] Allergy Mild myalgia Verified 05/17/21 16:49 Consultations 05/17/21 18:02 ED Decision to Admit Stat 05/18/21 11:37 Consult Oromaxillofacial Surgery Routine Ordered Studies 05/17/21 15:56 CT head/brain wo con Stat Hospital Course (1) Dental infection: 86 y/o female w/ pAF on warfarin who presents w/ supratherapeutic INR 10, mostly asymptomatic. (1) Supratherapeutic INR: - recent course of amox may be contributory. Patient also has not checked INR in 10 months. - Received vitamin K in ED. Recheck in am 1.7. - Discharged home to resume warfarin and recheck INR on friday as already set up. (2) Dental infection: - noted on exam. mild. completed abx course - denied pain. - consulted oral surgery. No need for any further antibiotics. should follow up with her dentist and set up appt with oral surgery. (2) Supratherapeutic INR: (3) Atrial fibrillation: (4) assisted (current) use of anticoagulants: (5) Diabetes mellitus: (6) Dementia: Total Time Total Time Spent Total Time Spent (In Minutes): 40 Discharge Plan Discharge Items Patient Disposition: Home - Self-Care Reason For Visit: SUPRATHERAPEUTIC INR Discharge Diagnosis: Supratherapeutic INR Activity: Resume your previous activity Non-emergency contact: Primary Care Provider Call non-emergency contact if: you have any medication questions Follow-up/Referrals: Rohan Worthy MD [Primary Care Provider] - Diet: Carb Consistent or DM2 and Heart Healthy Addtl Attending Provider Instructions: You were admitted for very high INR of >10. You received Vitamin K and next morning your INR was 1.7. The rise in INR was likely from antibiotics. You will resume warfarin at home dose and recheck INR on friday as scheduled. You were seen by oral surgery - Dr. Longo and recommended to discontinue antibiotics and follow up with Dr. Longo and your dentist. Pending Studies at Discharge: No Stand-Alone Forms: My [facility], Smoking Cessation Medications and DC Order Prescriptions: Continued warfarin 5 mg tablet 5 mg PO .COMPLEX Qty: 90 RF: 3 atorvastatin 20 mg tablet 10 mg PO QAM 7 Days Qty: 4 RF: 0 calcium carbonate-vitamin D3 600 mg(1,500mg) -200 unit tablet 1 tab PO QAM RF: 0 metformin 500 mg tablet extended release 24 hr 500 mg PO UD RF: 0 donepezil 5 mg tablet 5 mg PO QAM RF: 0 metoprolol succinate 100 mg tablet extended release 24 hr 100 mg PO QAM RF: 0 sertraline 25 mg tablet 25 mg PO QAM RF: 0 furosemide 20 mg tablet 20 mg PO QAM RF: 0 aspirin [Aspirin Low Dose] 81 mg Tablet,Delayed Release (Dr/Ec) 81 mg PO DAILY RF: 0 Discontinued amoxicillin 500 mg capsule 500 mg PO .COMPLEX RF: 0 Discharge Orders: Discharge Order (Routine); Ordered 05/18/21 Ordered By: Monse Guzman Admission Data Admit Date/Time: 05/17/21 18:44 Attending Provider: Monse Guzman Admit Provider: Solitario Contreras Primary Care Provider: Rohan Worthy Other Providers: Yann Ang Barry R Other Interventions: Discharge Summary Assessment (RN) Last Done: 05/18/21 19:30
== END 2021-05-18 21:23 | disposition home or self-care (01) ==
LOC: 2N 14:23 → ED 14:23 → SUATTDRO 18:44 → 2N 22:44

== ENCOUNTER 2021-08-21 21:31 | Inpatient (IN) ==
[2021-08-21] MEDS ORDERED: DEXTROSE 50% 50 ML SYRINGE IV ONE ×2 (21:55)
--- NOTE | 2021-08-21 22:01 | Emergency Department Note ---
Impression & Plan Hypoglycemia, Acute alteration in mental status, Sepsis, Pleural effusion, bilateral, Elevated INR, Anemia, DANAY (acute kidney injury), Hypothermia ED Provider Note NAME: RACHELL RIVERA AGE: 86 SEX: F : 1935 ARRIVES VIA: Ambulance INFORMANT: Patient, EMS ED PROVIDER(S): Baljit Zuñiga DO CHIEF COMPLAINT: Altered mental status HPI: The patient is a 86-year-old female who presented to emergency department by ambulance for an evaluation of altered mental status. The patient was found on the [facility] She was altered. She has a history of diabetes but only takes Metformin for her blood sugar. She was seen at her family doctor's today. She was noted to have an elevated INR greater than 10 and was told to monitor her INR and hold her Coumadin for the time being. The patient was found on the floor by the half-way staff. She had a work-up by the orthodontic assistant which revealed hypoglycemia. The patient was treated with some oral glucose. Symptoms mildly improved but the patient still appears to be altered. It was an unwitnessed fall. Is unclear if the patient hurt her self anywhere but at this time she is denying any pain. She is still slow to answer questions but does deny having any chest pain or difficulty breathing. She denies having any vomiting. She is unsure how she fell or landed on the floor. ROS: See above HPI for pertinent positives & negatives. A total of 10 systems reviewed and were otherwise negative. PAST MEDICAL HISTORY: See Below PAST SURGICAL HISTORY: See Below FAMILY HISTORY: See Below SOCIAL HISTORY: See Below HOME MEDICATIONS: See Below ALLERGIES: See Below VITALS: See Below PHYSICAL EXAMINATION: GENERAL: Patient is awake to verbal stimuli. She does answer questions slowly. EYES: The conjunctivae are clear. The pupils are round and reactive. EARS, NOSE, MOUTH AND THROAT: The nose is without any evidence of any deformity. NECK: The neck is nontender and supple. RESPIRATORY: Normal respiratory effort is noted there is no evidence of wheezing rhonchi or rales CARDIOVASCULAR: Regular rate and rhythm noted there no murmurs rubs or gallops normal S1 normal S2. GASTROINTESTINAL: The abdomen is soft. Abdomen is nontender. MUSCULOSKELETAL/EXTREMITIES: There is no evidence of gross deformity full range of motion is noted in the hips and shoulders. SKIN: Skin is cool and dry. Pedal edema was noted bilaterally. NEUROLOGIC: Patient is awake to verbal commands. She is oriented to person and place. Strength is symmetric in both upper extremities. MEDICAL DECISION MAKING: The patient is an 86-year-old female who presented to emergency department for an evaluation of altered mental status. She was found to have hypoglycemia prior to arrival. She was treated by the prehospital personnel as well as the emergency department for hypoglycemia. The patient still had some degree of altered mental status which is new from her baseline. The patient's work-up included a septic work-up. The patient was treated with IV fluids as well as IV antibiotics. She was also treated with vitamin K for an elevated INR. The patient was found to have bilateral pleural effusions on chest x-ray. The patient had an elevated creatinine compared to baseline. She also has anemia which appears to be baseline for her. I discussed the patient's condition with the on-call [facility]. They have agreed to evaluate the patient in the emergency department for further management and disposition. Triage Nursing notes reviewed. Prior medical records reviewed Vital Signs: reviewed and remarkable for no significant abnormalities Differential diagnosis: Infection, hypoglycemia, electrolyte abnormalities, overdose, toxicologic, cardiac sources, intracerebral event, neurologic, trauma, as well as other pathologies. ER treatment provided: See below Diagnostics interpreted by me: ECG: EKG was obtained in the emergency department. My interpretation is atrial fibrillation at 63 bpm. Incomplete right bundle-branch block pattern was noted. Nonspecific ST segment abnormalities are noted. This was compared to a tracing from May 252000. The changes are new compared to the earlier tracing. Cardiac Monitoring: An order was placed for continuous cardiac monitoring. The monitor shows a rate of 73 bpm with sinus rhythm. Laboratory studies: As stated above and show below. Imaging studies: See below Consultation(s): I discussed this case with Dr. Ang who is on-call for the [facility] group. He will evaluate the patient in the emergency department. Past Med/Surg History Medical History Adult situational stress disorder Atrial flutter Cardiomyopathy, dilated, nonischemic Dementia occas forgetful and daughter is staying with her for a few weeks Esophageal dysmotility Hyperlipidemia Malnutrition daughter is staying with her and family is planning next step she can not be alone Mitral stenosis Osteoporosis Paroxysmal A-fib Type 2 diabetes mellitus Surgical History H/O colonoscopy H/O tooth extraction History of cataract surgery Family History Father Hypertension Gastric cancer Mother Hypertension Social History Smoking Status: Never smoker Second Hand Exposure: No; Hx Alcohol Use: No Hx Substance Use: No Preferred Language: Cymro Communication Ability: Effective Visual Impairment: Limited Hearing Ability: Normal Inside Sales Administrator Required: No Beliefs That Will Affect Care: None marital status: Current Living Situation: Alone Current Living Situation Comment: nephew lives with her downstairs but does not really pay attention current occupational status: retired How many Children do You have: 6 Feels Safe at Home: Yes Childhood Exposure to Second-Hand Smoke: No caffeine: Yes Dental Care, Regularly: Yes Physical Activity Frequency: Does not Exercise Seatbelt Use: always Sunscreen Use: Yes Do you think of yourself as: straight/heterosexual Assistive Devices: Cane and Wheelchair Allergies Allergies Allergy/AdvReac Type Severity Reaction Status Date / Time simvastatin [From Zocor] Allergy Mild myalgia Verified 08/21/21 21:44 Home Meds Home Medications Medication Instructions Recorded Confirmed calcium carbonate 600 mg-vitamin 1 tab PO QAM tab 04/15/19 08/21/21 D3 5 mcg (200 unit) tablet donepezil 5 mg tablet 5 mg PO HS 04/12/21 08/21/21 sertraline 25 mg tablet 25 mg PO QAM 04/12/21 08/21/21 aspirin 81 mg tablet,delayed 81 mg PO QAM 05/17/21 08/21/21 release (Aspirin Low Dose) atorvastatin 10 mg tablet 10 mg PO QAM 08/21/21 08/21/21 warfarin 2.5 mg tablet 2.5 mg PO HS 08/21/21 08/21/21 Previous Rx's Medication Instructions Recorded metformin 500 mg tablet 500 mg PO BID #180 tab 05/25/21 furosemide 20 mg tablet 20 mg PO QAM #90 tab 07/30/21 warfarin 5 mg tablet 5 mg PO .COMPLEX #100 tab 08/14/21 Results & Data (ED) Vital Signs Vital Signs - 24 hr 08/21/21 21:21 08/21/21 22:34 08/21/21 22:36 Pulse Rate 73 Pulse Rhythm Regular Respiratory Rate 26 H Respiratory Effort / Characteristics Other Non-Labored Respiratory Depth Shallow Respiratory Pattern Regular Blood Pressure 122/68 Blood Pressure Mean 86 Blood Pressure Position Sitting Pulse Oximetry 98 98 98 Oxygen Delivery Method Room Air Room Air Room Air Sepsis Recent Fever Within 48 Hours No Sepsis New/Unexplained Change in Mental Status N/A Sepsis Action Taken by Nursing No Action Required Home Medications Current Medication List: was personally reviewed by me Laboratory Data Attestation: I reviewed the patient's lab results. Result diagrams: 08/21/21 22:03 08/21/21 22:03 Lab Results 08/21/21 08/21/21 08/21/21 Range/Units 21:53 22:01 22:03 WBC 6.10 (4.8-10.8) K/uL RBC 3.45 L (4.2-5.4) M/uL Hgb 8.3 L (12.0-16.0) g/dL Hct 30.1 L (37-47) % MCV 87.2 (80-100) fL MCH 24.1 L (25-34) pg MCHC 27.6 L (32-36) g/dL RDW Std Deviation 60.8 H (36.4-46.3) fL RDW Coeff of Marley 18.9 H (11.5-14.5) % Plt Count 183 (130-400) K/uL MPV 10.9 H (7.4-10.4) fL Immature Gran % (Auto) 0.5 % Neut % (Auto) 83.9 % Lymph % (Auto) 7.9 % Medina % (Auto) 7.7 % Eos % (Auto) 0.0 % Baso % (Auto) 0.0 % Neut # (Auto) 5.12 (1.4-6.5) K/uL Lymph # (Auto) 0.48 L (1.2-3.4) K/uL Medina # (Auto) 0.47 (0.11-0.59) K/uL Eos # (Auto) 0.00 (0-0.5) K/uL Baso # (Auto) 0.00 (0-0.2) K/uL Immature Gran # (Auto) 0.03 H (0.00-0.02) K/uL Absolute Nucleated RBC 0.06 H (0-0) K/uL Nucleated RBC % (auto) 0.9 % PT (9.0-12.0) Seconds INR (0.9-1.1) APTT (21.0-31.0) Seconds PTT Ratio Sodium (136-145) mmol/L Potassium (3.5-5.1) mmol/L Chloride (98-107) mmol/L Carbon Dioxide (21-32) mmol/L Anion Gap (3-11) BUN (6-23) mg/dl Creatinine (0.6-1.2) mg/dl Est Cr Clr Drug Dosing ml/min Est GFR ( Amer) ml/min Est GFR (Non-Af Amer) ml/min BUN/Creatinine Ratio (10-20) Glucose (70-99(Fasting)) mg/dl POC Glucose 55 L* 145 H (70-99) mg/dl Lactate (0.4-2.0) mmol/L Calcium (8.5-10.1) mg/dl Magnesium (1.7-2.4) mg/dl Total Bilirubin (0.2-1.0) mg/dl AST (13-39) U/L ALT (7-52) U/L Alkaline Phosphatase (34-104) U/L Troponin I (0-0.04) ng/ml Total Protein (6.0-8.3) gm/dl Albumin (3.4-5.0) gm/dl Globulin (2.5-4.0) gm/dl Albumin/Globulin Ratio (0.9-2) Procalcitonin (0-0.5) ng/ml SARS-CoV-2, RNA, NAAT (NEGATIVE) 08/21/21 08/21/21 08/21/21 Range/Units 22:03 22:03 22:03 WBC (4.8-10.8) K/uL RBC (4.2-5.4) M/uL Hgb (12.0-16.0) g/dL Hct (37-47) % MCV (80-100) fL MCH (25-34) pg MCHC (32-36) g/dL RDW Std Deviation (36.4-46.3) fL RDW Coeff of Marley (11.5-14.5) % Plt Count (130-400) K/uL MPV (7.4-10.4) fL Immature Gran % (Auto) % Neut % (Auto) % Lymph % (Auto) % Medina % (Auto) % Eos % (Auto) % Baso % (Auto) % Neut # (Auto) (1.4-6.5) K/uL Lymph # (Auto) (1.2-3.4) K/uL Medina # (Auto) (0.11-0.59) K/uL Eos # (Auto) (0-0.5) K/uL Baso # (Auto) (0-0.2) K/uL Immature Gran # (Auto) (0.00-0.02) K/uL Absolute Nucleated RBC (0-0) K/uL Nucleated RBC % (auto) % PT > 90.0 H (9.0-12.0) Seconds INR > 10.7 H* (0.9-1.1) APTT 54.2 H* (21.0-31.0) Seconds PTT Ratio 2.1 Sodium 135 L (136-145) mmol/L Potassium 5.3 H (3.5-5.1) mmol/L Chloride 98 (98-107) mmol/L Carbon Dioxide 11 L (21-32) mmol/L Anion Gap 26 H (3-11) BUN 51 H (6-23) mg/dl Creatinine 1.68 H (0.6-1.2) mg/dl Est Cr Clr Drug Dosing 16.9 ml/min Est GFR ( Amer) 31.3 ml/min Est GFR (Non-Af Amer) 27.0 ml/min BUN/Creatinine Ratio 30.4 H (10-20) Glucose 148 H (70-99(Fasting)) mg/dl POC Glucose (70-99) mg/dl Lactate 13.6 H* (0.4-2.0) mmol/L Calcium 10.1 (8.5-10.1) mg/dl Magnesium 1.8 (1.7-2.4) mg/dl Total Bilirubin 0.9 (0.2-1.0) mg/dl AST 52 H (13-39) U/L ALT 40 (7-52) U/L Alkaline Phosphatase 51 (34-104) U/L Troponin I 0.04 (0-0.04) ng/ml Total Protein 5.7 L (6.0-8.3) gm/dl Albumin 3.5 (3.4-5.0) gm/dl Globulin 2.2 L (2.5-4.0) gm/dl Albumin/Globulin Ratio 1.6 (0.9-2) Procalcitonin (0-0.5) ng/ml SARS-CoV-2, RNA, NAAT (NEGATIVE) 08/21/21 08/21/21 08/21/21 Range/Units 22:03 22:25 22:46 WBC (4.8-10.8) K/uL RBC (4.2-5.4) M/uL Hgb (12.0-16.0) g/dL Hct (37-47) % MCV (80-100) fL MCH (25-34) pg MCHC (32-36) g/dL RDW Std Deviation (36.4-46.3) fL RDW Coeff of Marley (11.5-14.5) % Plt Count (130-400) K/uL MPV (7.4-10.4) fL Immature Gran % (Auto) % Neut % (Auto) % Lymph % (Auto) % Medina % (Auto) % Eos % (Auto) % Baso % (Auto) % Neut # (Auto) (1.4-6.5) K/uL Lymph # (Auto) (1.2-3.4) K/uL Medina # (Auto) (0.11-0.59) K/uL Eos # (Auto) (0-0.5) K/uL Baso # (Auto) (0-0.2) K/uL Immature Gran # (Auto) (0.00-0.02) K/uL Absolute Nucleated RBC (0-0) K/uL Nucleated RBC % (auto) % PT (9.0-12.0) Seconds INR (0.9-1.1) APTT (21.0-31.0) Seconds PTT Ratio Sodium (136-145) mmol/L Potassium (3.5-5.1) mmol/L Chloride (98-107) mmol/L Carbon Dioxide (21-32) mmol/L Anion Gap (3-11) BUN (6-23) mg/dl Creatinine (0.6-1.2) mg/dl Est Cr Clr Drug Dosing ml/min Est GFR ( Amer) ml/min Est GFR (Non-Af Amer) ml/min BUN/Creatinine Ratio (10-20) Glucose (70-99(Fasting)) mg/dl POC Glucose 123 H (70-99) mg/dl Lactate (0.4-2.0) mmol/L Calcium (8.5-10.1) mg/dl Magnesium (1.7-2.4) mg/dl Total Bilirubin (0.2-1.0) mg/dl AST (13-39) U/L ALT (7-52) U/L Alkaline Phosphatase (34-104) U/L Troponin I (0-0.04) ng/ml Total Protein (6.0-8.3) gm/dl Albumin (3.4-5.0) gm/dl Globulin (2.5-4.0) gm/dl Albumin/Globulin Ratio (0.9-2) Procalcitonin 0.12 (0-0.5) ng/ml SARS-CoV-2, RNA, NAAT NEGATIVE (NEGATIVE) 08/22/21 Range/Units 00:07 WBC (4.8-10.8) K/uL RBC (4.2-5.4) M/uL Hgb (12.0-16.0) g/dL Hct (37-47) % MCV (80-100) fL MCH (25-34) pg MCHC (32-36) g/dL RDW Std Deviation (36.4-46.3) fL RDW Coeff of Marley (11.5-14.5) % Plt Count (130-400) K/uL MPV (7.4-10.4) fL Immature Gran % (Auto) % Neut % (Auto) % Lymph % (Auto) % Medina % (Auto) % Eos % (Auto) % Baso % (Auto) % Neut # (Auto) (1.4-6.5) K/uL Lymph # (Auto) (1.2-3.4) K/uL Medina # (Auto) (0.11-0.59) K/uL Eos # (Auto) (0-0.5) K/uL Baso # (Auto) (0-0.2) K/uL Immature Gran # (Auto) (0.00-0.02) K/uL Absolute Nucleated RBC (0-0) K/uL Nucleated RBC % (auto) % PT (9.0-12.0) Seconds INR (0.9-1.1) APTT (21.0-31.0) Seconds PTT Ratio Sodium (136-145) mmol/L Potassium (3.5-5.1) mmol/L Chloride (98-107) mmol/L Carbon Dioxide (21-32) mmol/L Anion Gap (3-11) BUN (6-23) mg/dl Creatinine (0.6-1.2) mg/dl Est Cr Clr Drug Dosing ml/min Est GFR ( Amer) ml/min Est GFR (Non-Af Amer) ml/min BUN/Creatinine Ratio (10-20) Glucose (70-99(Fasting)) mg/dl POC Glucose (70-99) mg/dl Lactate 12.0 H* (0.4-2.0) mmol/L Calcium (8.5-10.1) mg/dl Magnesium (1.7-2.4) mg/dl Total Bilirubin (0.2-1.0) mg/dl AST (13-39) U/L ALT (7-52) U/L Alkaline Phosphatase (34-104) U/L Troponin I (0-0.04) ng/ml Total Protein (6.0-8.3) gm/dl Albumin (3.4-5.0) gm/dl Globulin (2.5-4.0) gm/dl Albumin/Globulin Ratio (0.9-2) Procalcitonin (0-0.5) ng/ml SARS-CoV-2, RNA, NAAT (NEGATIVE) Administered Medications Discontinued Medications Dextrose (Dextrose 50% 50 Ml Syringe) Confirm Administered Dose 50 ml IV .STK- MED ONE Stop: 08/21/21 21:56 Last Admin: 08/21/21 22:03 Dose: Not Given Documented by: [id number] Dextrose (Dextrose 50% 50 Ml Syringe) 25 ml IV NOW ONE Stop: 08/21/21 21:56 Last Admin: 08/21/21 21:57 Dose: 25 ml Documented by: [id number] Piperacillin Sod/Tazobactam Sod (Zosyn) 4.5 gm in 120 mls @ 240 mls/hr IV NOW ONE Stop: 08/21/21 23:47 Last Infusion: 08/22/21 00:49 Dose: 0 mls/hr Documented by: [id number] Admin: 08/22/21 00:07 Dose: 240 mls/hr Documented by: [id number] Sodium Chloride (Nss 1000ml) 1,000 mls @ 999 mls/hr IV .Q1H1M ONE Stop: 08/22/21 00:53 Last Admin: 08/22/21 00:09 Dose: Not Given Documented by: [id number] Phytonadione 5 mg/ Sodium (Chloride) 50.5 mls @ 101 mls/hr IV ONE ONE Stop: 08/22/21 00:32 Last Admin: 08/22/21 00:49 Dose: 101 mls/hr Documented by: [id number] Sodium Chloride (Nss) 500 mls @ 999 mls/hr IV .Q31M ONE Stop: 08/22/21 00:39 Last Admin: 08/22/21 00:10 Dose: 999 mls/hr Documented by: [id number] Imaging Data Radiologist's Impression: Patient: RACHELL RIVERA (Female) : 33 Status: ER Date: 08/21/21 23:23 Room #: History: fall Slices: 834 Priors: Tech: Daniel Sellers @ [phone] Exams: CT C SPINE Contrast: Accession Numbers: [id number] Referring Physician: LEONARDO CAMPOS Preliminary Findings Only See Final Report For Complete Findings CT C SPINE: Mild narrowing and osteophytosis of the atlantodental joint. The odontoid process is intact. Moderate to severe multilevel degenerative disc disease and mild multilevel degenerative facet arthrosis throughout the cervical spine. No acute fracture or subluxation is seen. Axial soft tissue images show significant findings at the following levels: C3-4: 3 mm posterior disc bulge and/or disc marginal osteophyte formation narrows the thecal sac to 8-9 mm. C4-5: 2 mm posterior disc marginal osteophyte formation narrows the canal to 8-9 mm. C5-6: 4 mm posterior disc marginal osteophyte formation narrows the canal to 7 mm. C6-7: 3-4 mm posterior and right-sided disc marginal osteophyte formation narrows the canal to 7 mm. Incidental note is made of moderate calcification of the carotid bifurcation bilaterally and partial visualization of a right pleural effusion measuring at least 3 cm. Radiologist: Hao Beverly MD Study ready at 23:33 and initial results transmitted at 23:48 Patient: RACHELL RIVERA (Female) : 33 Status: ER Date: 08/21/21 23:23 Room #: History: fall Slices: 85 Priors: Tech: Daniel Sellers @ [phone] Exams: CT HEAD Contrast: Accession Numbers: [id number] Referring Physician: [facility] Preliminary Findings Only See Final Report For Complete Findings CT HEAD: Comparison to May 17, 2021. Mild cerebral atrophy and periventricular white matter low density consistent with chronic small vessel disease and/or senescent changes. 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 There is an old lacunar infarct in the left cerebellum measuring 8 mm, unchanged. No acute large vessel infarct or intracranial hemorrhage is seen. The paranasal sinuses and mastoid air cells are normal. No skull fracture or significant scalp hematoma is identified. Radiologist: Hao Beverly MD Study ready at 23:33 and initial results transmitted at 23:49 Patient: RACHELL RIVERA (Female) : 33 Status: ER Date: 08/21/21 23:24 Room #: History: fall 2 weeks ago headaches eh fall poor hx unable to follow commands dg Slices: 556 Priors: Tech: VeritoDaniel @ [phone] Exams: CT CHEST Without Contrast Contrast: Accession Numbers: [id number] Referring Physician: LEONARDO PADILLAArash DEL TORO BETH Preliminary Findings Only See Final Report For Complete Findings CT CHEST Without Contrast: There is moderate cardiomegaly. Severe coronary calcification is present. No pericardial effusion is seen. There are moderate right and small left pleural effusions layering 6.4 and 2.1 cm as well as mild perihilar streaky densities suggesting CHF. No pneumothorax is seen. No acute rib fractures are identified. Mild to moderate multilevel degenerative changes are seen throughout the thoracic spine. No acute fracture or subluxation. The thoracic aorta is moderately calcified but nondilated. This is a noncontrast study. No mediastinal or axillary lymph adenopathy or mass is identified. Radiologist: Hao Beverly MD Study ready at 23:34 and initial results transmitted at 23:54 Patient: RACHELL RIVERA (Female) : 33 Status: ER Date: 08/21/21 23:24 Room #: History: fall poor hx unable to follow commands dg Slices: 694 Priors: Tech: Verito Daniel @ [phone] Exams: CT ABDOMEN & PELVIS Without Contrast Contrast: Accession Numbers: [id number] Referring Physician: LEONARDO PADILLAArash ARIASStevie CAMPOS Preliminary Findings Only See Final Report For Complete Findings CT ABDOMEN & PELVIS Without Contrast: Moderate right and small left pleural effusions with moderate cardiomegaly and severe coronary calcification. There is mild diffuse anasarca over the torso. There is a trace amount of free fluid in the abdomen. This may be due to CHF. No solid organ injury is identified, however, detection of solid organ injury on noncontrast CT is inherently limited. The abdominal aorta is severely calcified but nondilated. Bowel loops are nondilated. No pneumoperitoneum or acute inflammatory changes are seen involving the bowel. The uterus, adnexa, and urinary bladder appear within normal limits. Mild multilevel degenerative changes are seen throughout the lumbar spine. No acute spinal or pelvic fracture is identified. Radiologist: Hao Beverly MD Study ready at 23:34 and initial results transmitted at 23:56 Discharge Plan Visit Data Chief Complaint: Shortness of Breath/Dyspnea ED Provider: Baljit Zuñiga Discharge Problem: Hypoglycemia, Acute alteration in mental status, Sepsis, Pleural effusion, bilateral, Elevated INR, Anemia, DANAY (acute kidney injury), Hypothermia Patient Disposition: Being Evaluated by Hospitalist Forms Stand Alone Forms: My [facility] Prescriptions Prescriptions: No Action metformin 500 mg tablet 500 mg PO BID Qty: 180 RF: 2 furosemide 20 mg tablet 20 mg PO QAM Qty: 90 RF: 3 warfarin 5 mg tablet 5 mg PO .COMPLEX Qty: 100 RF: 3 calcium carbonate-vitamin D3 600 mg(1,500mg) -200 unit tablet 1 tab PO QAM RF: 0 donepezil 5 mg tablet 5 mg PO HS RF: 0 sertraline 25 mg tablet 25 mg PO QAM RF: 0 aspirin [Aspirin Low Dose] 81 mg Tablet,Delayed Release (Dr/Ec) 81 mg PO QAM RF: 0 atorvastatin 10 mg tablet 10 mg PO QAM RF: 0 warfarin 2.5 mg tablet 2.5 mg PO HS RF: 0 Referrals Referrals: Leonardo Weems [Primary Care Provider] -
[2021-08-21 22:39] LABS: Albumin Globulin Ratio 1.6 (0.9-2); Albumin Level 3.5 gm/dl (3.4-5.0); BUN Creatinine Ratio 30.4 (10-20); Bilirubin,Total 0.9 mg/dl (0.2-1.0); Calcium 10.1 mg/dl (8.5-10.1); Creatinine Clr Calc Pharmacy 16.9 ml/min; Est GFR (African American) 31.3 ml/min; Globulin 2.2 gm/dl (2.5-4.0); Magnesium 1.8 mg/dl (1.7-2.4); Potassium 5.3 mmol/L (3.5-5.1); Total Protein 5.7 gm/dl (6.0-8.3)
[2021-08-21 22:40] LABS: Troponin I 0.04 ng/ml (0-0.04)
[2021-08-21 22:48] LABS: Partial Thromboplastin Ratio 2.1
[2021-08-21 22:51] LABS: Prothrombin Time > 90.0 Seconds (9.0-12.0)
[2021-08-21 22:59] LABS: Partial Thromboplastin Time 54.2 Seconds (21.0-31.0)
[2021-08-21 23:00] LABS: INR > 10.7 (0.9-1.1)
[2021-08-21 23:12] LABS: Hematocrit (blood only) 30.1 % (37-47); Hemoglobin 8.3 g/dL (12.0-16.0); Immature Granulocytes # (auto) 0.03 K/uL (0.00-0.02); Immature Granulocytes % (auto) 0.5 %; Lymphocytes # (auto) 0.48 K/uL (1.2-3.4); Lymphocytes % (auto) 7.9 %; Mean Corpuscular Hemoglobin 24.1 pg (25-34); Mean Corpuscular Hgb Conc 27.6 g/dL (32-36); Mean Corpuscular Volume 87.2 fL (80-100); Mean Platelet Volume 10.9 fL (7.4-10.4); Monocytes # (auto) 0.47 K/uL (0.11-0.59); Monocytes % (auto) 7.7 %; Neutrophils # (auto) 5.12 K/uL (1.4-6.5); Neutrophils % (auto) 83.9 %; Nucleated RBC # (auto) 0.06 K/uL (0-0); Nucleated RBC % (auto) 0.9 %; Platelet Count 183 K/uL (130-400); RDW Coefficient of Variation 18.9 % (11.5-14.5); RDW Standard Deviation 60.8 fL (36.4-46.3); Red Blood Count 3.45 M/uL (4.2-5.4)
[2021-08-21] MEDS ORDERED: PIPERACILLIN/TAZOBACTAM 4.5 GM/120 ML BAG IV ONE (23:18)
[2021-08-21] MEDS ORDERED: PIPERACILL/TAZOBAC CONSULT ACTIVE PRN (23:18)
[2021-08-21] MEDS ORDERED: SODIUM CHLORIDE 0.9% 1000ML 1,000 ML IV ONE (23:53)
[2021-08-22] MEDS ORDERED: PHYTONADIONE 5 MG in SODIUM CHLORIDE 0.9% 50 ML IV ONE (00:03)
[2021-08-22] MEDS ORDERED: SODIUM CHLORIDE 0.9% 500 ML IV ONE (00:09)
--- NOTE | 2021-08-22 00:47 | History & Physical Report ---
Date of Service August 22, 2021 Assessment & Plan (1) Comfort measures only status: Plan: Patient is extremely sick. Given patient's decline in her quality of life over past few months, Family is opting to going the comfort route with no aggressive measures. Discussed aggressive maneuvers: central line placement, pressors, dialysis. Had extensive discussion with WAYNE, who had a discussion with his family and siblings. They are agreeable to transitioning to [employer]. (2) Acute alteration in mental status: Plan: Likely due to metabolic acidosis. Patient has extensive lactic acidosis with elevated anion gap. Given IVF in ER. Currently transitioning to [employer]. (3) Hypoglycemia: Plan: resolved. unsure of cause. will stop workup as patient will be [employer]. (4) Pleural effusion, bilateral: Plan: currently on oxymask 6 liters. will monitor. (5) Elevated INR: Plan: hold coumadin. (6) Supratherapeutic INR: (7) Atrial fibrillation: Plan: hold meds as above. History of Present Illness Chief Complaint: lethargy Primary Care Provider: Liza Castaneda This is a 86 yo female who presents to the hospital with the following history: Patient lives in a personal mcc and was found unconscious on the floor this evening. When EMS arrived to the personal mcc, she was found to be hypoglycemic (though she only takes Metformin) She was brought to the ED. Despite increasing her blood sugar, she remains lethargic. ED labs showed the following: Lactic acid:elevated at 13. Bicarb on BMP: 11. CT scan of chest showed: pleural effusion Earlier in the day, she had seen her PCP and was found to have an elevated INR >10. She was told to hold her coumadin today. Allergies Allergy/AdvReac Type Severity Reaction Status Date / Time simvastatin [From Zocor] Allergy Mild myalgia Verified 08/21/21 21:44 Home Medications Medication Instructions Recorded Confirmed Type calcium carbonate 600 mg-vitamin 1 tab PO QAM tab 04/15/19 08/21/21 History D3 5 mcg (200 unit) tablet donepezil 5 mg tablet 5 mg PO HS 04/12/21 08/21/21 History sertraline 25 mg tablet 25 mg PO QAM 04/12/21 08/21/21 History aspirin 81 mg tablet,delayed 81 mg PO QAM 05/17/21 08/21/21 History release (Aspirin Low Dose) metformin 500 mg tablet 500 mg PO BID #180 tab 05/25/21 08/21/21 Rx furosemide 20 mg tablet 20 mg PO QAM #90 tab 07/30/21 08/21/21 Rx warfarin 5 mg tablet 5 mg PO .COMPLEX #100 tab 08/14/21 08/21/21 Rx atorvastatin 10 mg tablet 10 mg PO QAM 08/21/21 08/21/21 History warfarin 2.5 mg tablet 2.5 mg PO HS 08/21/21 08/21/21 History Past Med/Surg History Medical History Adult situational stress disorder Atrial flutter Cardiomyopathy, dilated, nonischemic Dementia occas forgetful and daughter is staying with her for a few weeks Esophageal dysmotility Hyperlipidemia Malnutrition daughter is staying with her and family is planning next step she can not be alone Mitral stenosis Osteoporosis Paroxysmal A-fib Type 2 diabetes mellitus Surgical History H/O colonoscopy H/O tooth extraction History of cataract surgery Family History Father Hypertension Gastric cancer Mother Hypertension Social History Smoking Status: Never smoker Second Hand Exposure: No; Hx Alcohol Use: No Hx Substance Use: No Preferred Language: Irish Communication Ability: Effective Visual Impairment: Limited Hearing Ability: Normal Warehouse Administrator Required: No Beliefs That Will Affect Care: None marital status: Current Living Situation: Personal Care Facility Current Living Situation Comment: nephew lives with her downstairs but does not really pay attention current occupational status: retired How many Children do You have: 6 Other Information That Helps Us Care for You: No Feels Safe at Home: Yes Childhood Exposure to Second-Hand Smoke: No caffeine: Yes Dental Care, Regularly: Yes Physical Activity Frequency: Does not Exercise Seatbelt Use: always Sunscreen Use: Yes Do you think of yourself as: straight/heterosexual Assistive Devices: None Review of Systems Review of Systems: Unobtainable due to cognitive status Physical Exam Constitutional: + ill appearing and + lethargic Eyes: PERRL, conjunctivae normal, anicteric sclerae ENMT: Mouth: + dry oral mucous membranes Neck: trachea midline, no thyromegaly Respiratory: Auscultation: + rales (b/l bases, on right up to 1/3 of the lower lung field) Cardiovascular: Rate/Rhythm: regular rate Heart Sounds: normal S1 and normal S2 Gastrointestinal (Abdomen): normal bowel sounds, soft, nontender, no hepatosplenomegaly Skin: no rashes, warm and dry Neurologic: lethargic Psychiatric: Orientation: + not alert Lymphatic: no cervical or axillary lymphadenopathy Results & Data Results & Data ([facility]) Vital Signs (Past 12 Hours) Vital Signs Pulse Resp BP Pulse Ox 08/21/21 22:36 98 08/21/21 22:34 98 08/21/21 21:21 73 26 H 122/68 98 PG Care Time/CCT Total # of Minutes Spent Total Time Spent with Patient: Total time spent is greater than 50% in coordination of care (as documented) at patient's floor/unit and/or counseling patient: Coding Level of Care Code 30808 Initial Inpt Care Lvl 3 Diagnoses Acute alteration in mental status R41.82 Hypoglycemia E16.2 Pleural effusion, bilateral J90 Elevated INR R79.1 Comfort measures only status Z51.5 Supratherapeutic INR R79.1 Atrial fibrillation I48.91 Atrial fibrillation type: unspecified Time Spent (min) 80 (1) Atrial fibrillation Atrial fibrillation type: unspecified Qualified Code(s): I48.91 - Unspecified atrial fibrillation
[2021-08-22 01:24] LABS: Base Excess VBG -16.1 mEq/L; HCO3 VBG 11 mmol/L; Oxygen Saturation VBG < 60.0 %; PCO2 VBG 30 mmHg (38-50); PO2 VBG 38 mmHg; pH VBG 7.18 (7.36-7.41)
[2021-08-22 01:31] LABS: Thyroid Stimulating Hormone 4.651 uIu/ml (0.300-4.500)
[2021-08-22] MEDS ORDERED: MoRPHine SULFATE 5 MG/0.25 ML UDP PO PRN (01:43)
[2021-08-22] MEDS ORDERED: LORazepam 0.5 MG/1 ML VIAL IV PRN (01:43)
[2021-08-22] MEDS ORDERED: ONDANSETRON 4 MG OD TAB SL PRN (01:43)
[2021-08-22] MEDS ORDERED: ONDANSETRON INJ 2 MG/ML 2 ML VIAL IV PRN (01:43)
[2021-08-22] MEDS ORDERED: LORazepam 0.5 MG TAB PO PRN (01:43)
[2021-08-22 02:16] LABS: T4 Free Thyroxine 1.22 ng/dl (0.61-1.60)
[2021-08-22 02:41] LABS: Appearance Urine Cloudy (Clear); Bilirubin Urine Negative (Negative); Blood Urine 1+ (Negative); Color Urine Dark Yellow; Epithelial Cell Urine Auto >30 /lpf (0-5); Glucose Urine UA Negative (Negative); Ketones Urine Trace (Negative); Leukocyte Esterase Urine Negative (Negative); Nitrite Urine Negative (Negative); Protein Urine 3+ (Negative); Specific Gravity Urine 1.018 (1.000-1.030); Urobilinogen Urine Negative (Negative)
[2021-08-22 02:58] LABS: Cast Urine Automated >30 /lpf (0-5)
[2021-08-22 03:00] LABS: Amorphous Sediment Urine Present (None Prsent); Bacteria Urine Automated 2+ (Negative)
--- NOTE | 2021-08-22 07:07 | XRay Report ---
XR chest 1V portable CLINICAL HISTORY: SEPSIS TECHNIQUE: Single frontal radiograph of the chest was obtained. Comparison: Comparison is made to chest one view 05/17/2021 FINDINGS: No lines and tubes are seen. Cardiomegaly is noted. Calcified aortic knob. Right greater than left lo wer lobe predominant airspace opacities are seen. Prominence of the pulmonary vasculature is seen. Th ere is a moderate right pleural effusion. There is likely a small left pleural effusion as well. No e vidence of pneumothorax. IMPRESSION: 1. Mild pulmonary edema. 2. Moderate right and likely small left pleural effusion. 3. Bilateral lower lung airspace opacities likely represent atelectasis with or without superimposed pneumonia and/or aspiration. ACT 112: Negative or not required by law. Electronically signed by: Marcio Bernal M.D. 08/22/2021 7:06 AM
--- NOTE | 2021-08-22 07:15 | CT Scan Report ---
CT SCAN OF THE BRAIN WITHOUT IV CONTRAST CLINICAL HISTORY: Fall. COMPARISON STUDY: CT of the brain dated 05/17/2021. TECHNIQUE: Unenhanced axial CT scan of the brain is performed from the vertex to the skull base. A do se lowering technique was utilized adhering to the principles of ALARA. FINDINGS: Brain parenchyma: There are age-related involutional changes noting mild subcortical and periventric ular microangiopathic change. There is no hemorrhage, mass effect, or evidence of acute territorial i schemia by CT criteria. Mitchell-white matter differentiation is preserved. No extra-axial fluid collecti on is seen. A small focus of left occipital encephalomalacia is unchanged and consistent with a remot e insult. 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 Ventricles, sulci, cisterns: Prominent secondary to involutional change. Intracranial vasculature: There is atherosclerotic calcification of the cavernous carotid arteries. Calvarium: The skeletal structures are osteopenic. No depressed calvarial fracture is identified. Sinuses and mastoids: The visualized paranasal sinuses are clear. The mastoid air cells are well pneu matized. Orbits: The bony orbits are grossly intact. There are bilateral ocular lens implants. IMPRESSION: There is no hemorrhage, mass effect, or evidence of acute territorial ischemia by CT crit liam. ACT 112: Negative or not required by law. Electronically signed by: Curt Bradley M.D. 08/22/2021 7:13 AM
--- NOTE | 2021-08-22 07:37 | CT Scan Report ---
CT cervical spine wo con CLINICAL HISTORY: fall TECHNIQUE: Multidetector row helical CT of the cervical spine was performed without administration of intravenous contrast. Coronal and sagittal reformations were obtained. Automated dose lowering techn iques and/or adjustment according to patient size were utilized for this exam. Comparison: None available at the time of this dictation. FINDINGS: No acute fractures or subluxations are identified. Partial calcification of the transverse ligament i s seen. Degenerative changes are seen in the visualized spine. Multilevel posterior disc/osteophyte b ulge is most prominent at C5-C6 and C6-C7 where the canal is narrowed to 7 mm. The alignment is christiano l. Biapical scarring is seen. There is partial visualization of a right greater than left pleural eff usion. IMPRESSION: Degenerative changes without evidence of acute bony injury. ACT 112: Negative or not required by law. Electronically signed by: Marcio Bernal M.D. 08/22/2021 7:36 AM
--- NOTE | 2021-08-22 07:48 | CT Scan Report ---
CT abd pelvis wo con CLINICAL HISTORY: fall TECHNIQUE: Helical axial images of the abdomen and pelvis were obtained. Automated dose lowering tech niques and/or adjustment according to patient size were utilized for this exam. This exam was perfor med without intravenous contrast. COMPARISON: None available at the time of this dictation. FINDINGS: Lower chest: For findings above the diaphragm, please see CT chest performed same day. Liver: Unremarkable. No focal lesions are seen. Gallbladder and biliary tree: No calcified gallstones. Normal caliber wall. No intra- or extrahepatic biliary ductal dilation. Pancreas: Unremarkable, no focal lesions. Spleen: Unremarkable. Adrenals: Unremarkable. Kidneys and ureters: Nonobstructive stone is seen on the left. Bladder: Limited evaluation due to underdistention. Reproductive organs: Multiple calcified fibroids are seen. Bowel: Unremarkable. Lymph nodes Retroperitoneal: Unremarkable. Mesenteric: Unremarkable. Pelvic: Unremarkable. Peritoneum: Free fluid is seen in the pelvis. Vessels: Atherosclerotic calcifications are seen. Abdominal wall: Anasarca is noted in the abdominal wall. Bones: Degenerative changes without evidence of acute fracture. IMPRESSION: 1. No acute traumatic abnormalities. 2. Anasarca and mild intraperitoneal fluid may be secondary to CHF. ACT 112: Negative or not required by law. Electronically signed by: Marcio Bernal M.D. 08/22/2021 7:46 AM
--- NOTE | 2021-08-22 08:53 | CT Scan Report ---
CT SCAN OF THE CHEST WITHOUT IV CONTRAST CLINICAL HISTORY: Fall. COMPARISON STUDY: Chest x-ray dated 08/21/2021. TECHNIQUE: CT scan of the thorax was performed from the thoracic inlet to the upper abdomen. Images are reviewed in the axial, sagittal, and coronal planes. IV contrast was not administered for this ex amination as per the referring clinician. A dose lowering technique was utilized adhering to the keren nciples of JACQUES. The examination is degraded by motion artifact, as well as by streak artifact from the arms which could not be elevated above the chest. CT DOSE: 1575.47 mGy.cm FINDINGS: Thyroid: Normal in size and heterogeneous in attenuation. Thoracic aorta: There is atherosclerotic calcification of the thoracic aorta, which is normal in kalli roland and demonstrates standard 3-vessel arch anatomy. Heart: The heart is markedly enlarged noting trace pericardial effusion. The coronary arteries are de nsely calcified. The pulmonary arteries are dilated suggesting pulmonary artery hypertension. Lungs and pleural spaces: Evaluation of the lung parenchyma is degraded by motion artifact. No pneumo thorax is seen. There are moderate to large right and small left pleural effusions with associated at electasis. There are scattered calcified granulomas. Mediastinum: There is no mediastinal lymphadenopathy. Patria: Not well assessed without IV contrast. Axillae: There is no axillary lymphadenopathy. Upper abdomen: Perihepatic ascites is noted in the upper abdomen. There is a small hiatal hernia. Skeletal structures: The skeletal structures are osteopenic. The bony thorax is grossly intact. Note that evaluation for rib fractures is significant degraded by motion artifact. Degenerative change and hyperkyphosis is noted in the thoracic spine. No lytic or blastic bony lesions are seen. IMPRESSION: 1. Streak and motion compromised examination. 2. No acute posttraumatic intrathoracic abnormality is identified. 3. Marked cardiomegaly. 4. Right larger than left pleural effusions with associated atelectasis. 5. Perihepatic ascites is seen in the upper abdomen. 6. Additional findings as above. ACT 112: Negative or not required by law. Electronically signed by: Curt Bradley M.D. 08/22/2021 8:51 AM
--- NOTE | 2021-08-22 09:53 | Death Pronouncement Note ---
Date of Service August 22, 2021 Pronouncement Note Admission Date August 22, 2021 Date and Time of Date of : 08/22/21 Time of : 09:33 Preliminary Cause of (1) Sepsis: Additional Comments: see discharge summary (2) Acute metabolic encephalopathy: (3) Elevated INR: (4) Cardiomyopathy, dilated, nonischemic: (5) Paroxysmal A-fib: (6) CHF (congestive heart failure): Additional Data Confirmation of : no pulse, no respirations, no heart sounds and pupils fixed and dilated Pronouncement Performed By: Advanced Practice Provider (CHRISTAL) Family: at bedside Attending/PCP notified?: Yes Attending physician: Vinod Hernandez Was code activated?: No Autopsy requested?: No insurance claims examiner notified?: Yes Organ bank notified?: Yes
--- NOTE | 2021-08-22 09:54 | Discharge Summary ---
Date of Service August 22, 2021 Admission HPI Per Admitting Provider This is a 86 yo female who presents to the hospital with the following history: Patient lives in a personal assisted and was found unconscious on the floor this evening. When EMS arrived to the personal assisted, she was found to be hypoglycemic (though she only takes Metformin) She was brought to the ED. Despite increasing her blood sugar, she remains lethargic. ED labs showed the following: Lactic acid:elevated at 13. Bicarb on BMP: 11. CT scan of chest showed: pleural effusion Earlier in the day, she had seen her PCP and was found to have an elevated INR >10. She was told to hold her coumadin today. Admission Exam (Per Admitting) Constitutional Constitutional: + ill appearing and + lethargic Eyes: PERRL, conjunctivae normal, anicteric sclerae ENMT: Mouth: + dry oral mucous membranes Neck: trachea midline, no thyromegaly Respiratory: Auscultation: + rales (b/l bases, on right up to 1/3 of the lower lung field) Cardiovascular: Rate/Rhythm: regular rate Heart Sounds: normal S1 and normal S2 Gastrointestinal (Abdomen): normal bowel sounds, soft, nontender, no hepatosplenomegaly Skin: no rashes, warm and dry Neurologic: lethargic Psychiatric: Orientation: + not alert Lymphatic: no cervical or axillary lymphadenopathy Discharge Data Consultations 08/22/21 00:49 ED Decision to Admit Stat Hospital Course (1) Sepsis: (2) Acute metabolic encephalopathy: (3) Elevated INR: hold coumadin. (4) Cardiomyopathy, dilated, nonischemic: (5) Paroxysmal A-fib: (6) CHF (congestive heart failure): Coding Diagnoses Sepsis A41.9 Acute metabolic encephalopathy G93.41 Elevated INR R79.1 Cardiomyopathy, dilated, nonischemic I42.0 Paroxysmal A-fib I48.0 CHF (congestive heart failure) I50.9
--- NOTE | 2021-08-22 15:39 | Electrocardiogram Report ---
Test Reason : Blood Pressure : / mmHG Vent. Rate : 063 BPM Atrial Rate : 129 BPM P-R Int : 000 ms QRS Dur : 096 ms QT Int : 504 ms P-R-T Axes : 000 055 079 degrees QTc Int : 515 ms Atrial fibrillation Nonspecific ST and T wave abnormality Abnormal ECG When compared with ECG of 17-MAY-2021 14:43, Minimal criteria for Inferior infarct are no longer Present QT has lengthened Confirmed by Moses Roldan ([id number]) on 08/22/2021 3:39:11 PM Referred By: Janny Castaneda Confirmed By:Barry Roldan
--- NOTE | 2021-08-22 16:49 | Discharge Summary ---
Date of Service August 22, 2021 Admission HPI Per Admitting Provider This is a 86 yo female who presents to the hospital with the following history: Patient lives in a [facility] [place] [facility] and was found unconscious on the floor this evening. When EMS arrived to the [facility] [place] [facility], she was found to be hypoglycemic (though she only takes Metformin) She was brought to the ED. Despite increasing her blood sugar, she remains lethargic. ED labs showed the following: Lactic acid:elevated at 13. Bicarb on BMP: 11. CT scan of chest showed: pleural effusion Earlier in the day, she had seen her PCP and was found to have an elevated INR >10. She was told to hold her coumadin today. Admission Exam Per Admitting Provider Constitutional: + ill appearing and + lethargic Eyes: PERRL, conjunctivae normal, anicteric sclerae ENMT: Mouth: + dry oral mucous membranes Neck: trachea midline, no thyromegaly Respiratory: Auscultation: + rales (b/l bases, on right up to 1/3 of the lower lung field) Cardiovascular: Rate/Rhythm: regular rate Heart Sounds: normal S1 and normal S2 Gastrointestinal (Abdomen): normal bowel sounds, soft, nontender, no hepatosplenomegaly Skin: no rashes, warm and dry Neurologic: lethargic Psychiatric: Orientation: + not alert Lymphatic: no cervical or axillary lymphadenopathy Principal Diagnosis Sepsis, Severe Metabolic Acidosis/Encephalopahy, Comfort Care Discharge Exam pronounced -- see note Discharge Data Allergies Allergy/AdvReac Type Severity Reaction Status Date / Time simvastatin [From Zocor] Allergy Mild myalgia Verified 08/21/21 21:44 Consultations 08/22/21 00:49 ED Decision to Admit Stat Ordered Studies Cervical Spine CT 08/21/21 21:55 CT cervical spine wo con CLINICAL HISTORY: fall TECHNIQUE: Multidetector row helical CT of the cervical spine was performed without administration of intravenous contrast. Coronal and sagittal reformations were obtained. Automated dose lowering techniques and/or adjustment according to patient size were utilized for this exam. Comparison: None available at the time of this dictation. FINDINGS: No acute fractures or subluxations are identified. Partial calcification of the transverse ligament is seen. Degenerative changes are seen in the visualized spine. Multilevel posterior disc/osteophyte bulge is most prominent at C5-C6 and C6-C7 where the canal is narrowed to 7 mm. The alignment is normal. Biapical scarring is seen. There is partial visualization of a right greater than left pleural effusion. IMPRESSION: Degenerative changes without evidence of acute bony injury. ACT 112: Negative or not required by law. Electronically signed by: Marcio Bernal M.D. 08/22/2021 7:36 AM Chest X-Ray 08/21/21 21:55 XR chest 1V portable CLINICAL HISTORY: SEPSIS TECHNIQUE: Single frontal radiograph of the chest was obtained. Comparison: Comparison is made to chest one view 05/17/2021 FINDINGS: No lines and tubes are seen. Cardiomegaly is noted. Calcified aortic knob. Right greater than left lower lobe predominant airspace opacities are seen. Prominence of the pulmonary vasculature is seen. There is a moderate right pleural effusion. There is likely a small left pleural effusion as well. No evidence of pneumothorax. IMPRESSION: 1. Mild pulmonary edema. 2. Moderate right and likely small left pleural effusion. 3. Bilateral lower lung airspace opacities likely represent atelectasis with or without superimposed pneumonia and/or aspiration. ACT 112: Negative or not required by law. Electronically signed by: Marcio Bernal M.D. 08/22/2021 7:[address] 08/21/21 21:55 CT SCAN OF THE BRAIN WITHOUT IV CONTRAST CLINICAL HISTORY: Fall. COMPARISON STUDY: CT of the brain dated 05/17/2021. TECHNIQUE: Unenhanced axial CT scan of the brain is performed from the vertex to the skull base. A dose lowering technique was utilized adhering to the principles of ALARA. FINDINGS: Brain parenchyma: There are age-related involutional changes noting mild subcortical and periventricular microangiopathic change. There is no hemorrhage, mass effect, or evidence of acute territorial ischemia by CT criteria. Mitchell- white matter differentiation is preserved. No extra-axial fluid collection is seen. A small focus of left occipital encephalomalacia is unchanged and consistent with a remote insult. 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 Ventricles, sulci, cisterns: Prominent secondary to involutional change. Intracranial vasculature: There is atherosclerotic calcification of the cavernous carotid arteries. Calvarium: The skeletal structures are osteopenic. No depressed calvarial fracture is identified. Sinuses and mastoids: The visualized paranasal sinuses are clear. The mastoid air cells are well pneumatized. Orbits: The bony orbits are grossly intact. There are bilateral ocular lens implants. IMPRESSION: There is no hemorrhage, mass effect, or evidence of acute territorial ischemia by CT criteria. ACT 112: Negative or not required by law. Electronically signed by: Curt Bradley M.D. 08/22/2021 7:13 AM Abdomen/Pelvis CT 08/21/21 22:13 CT abd pelvis wo con CLINICAL HISTORY: fall TECHNIQUE: Helical axial images of the abdomen and pelvis were obtained. Automated dose lowering techniques and/or adjustment according to patient size were utilized for this exam. This exam was performed without intravenous contrast. COMPARISON: None available at the time of this dictation. FINDINGS: Lower chest: For findings above the diaphragm, please see CT chest performed same day. Liver: Unremarkable. No focal lesions are seen. Gallbladder and biliary tree: No calcified gallstones. Normal caliber wall. No intra- or extrahepatic biliary ductal dilation. Pancreas: Unremarkable, no focal lesions. Spleen: Unremarkable. Adrenals: Unremarkable. Kidneys and ureters: Nonobstructive stone is seen on the left. Bladder: Limited evaluation due to underdistention. Reproductive organs: Multiple calcified fibroids are seen. Bowel: Unremarkable. Lymph nodes Retroperitoneal: Unremarkable. Mesenteric: Unremarkable. Pelvic: Unremarkable. Peritoneum: Free fluid is seen in the pelvis. Vessels: Atherosclerotic calcifications are seen. Abdominal wall: Anasarca is noted in the abdominal wall. Bones: Degenerative changes without evidence of acute fracture. IMPRESSION: 1. No acute traumatic abnormalities. 2. Anasarca and mild intraperitoneal fluid may be secondary to CHF. ACT 112: Negative or not required by law. Electronically signed by: Marcio Bernal M.D. 08/22/2021 7:[address] 08/21/21 22:13 CT SCAN OF THE CHEST WITHOUT IV CONTRAST CLINICAL HISTORY: Fall. COMPARISON STUDY: Chest x-ray dated 08/21/2021. TECHNIQUE: CT scan of the thorax was performed from the thoracic inlet to the upper abdomen. Images are reviewed in the axial, sagittal, and coronal planes. IV contrast was not administered for this examination as per the referring clinician. A dose lowering technique was utilized adhering to the principles of ALARA. The examination is degraded by motion artifact, as well as by streak artifact from the arms which could not be elevated above the chest. CT DOSE: 1575.47 mGy.cm FINDINGS: Thyroid: Normal in size and heterogeneous in attenuation. Thoracic aorta: There is atherosclerotic calcification of the thoracic aorta, which is normal in caliber and demonstrates standard 3-vessel arch anatomy. Heart: The heart is markedly enlarged noting trace pericardial effusion. The coronary arteries are densely calcified. The pulmonary arteries are dilated suggesting pulmonary artery hypertension. Lungs and pleural spaces: Evaluation of the lung parenchyma is degraded by motion artifact. No pneumothorax is seen. There are moderate to large right and small left pleural effusions with associated atelectasis. There are scattered calcified granulomas. Mediastinum: There is no mediastinal lymphadenopathy. Patria: Not well assessed without IV contrast. Axillae: There is no axillary lymphadenopathy. Upper abdomen: Perihepatic ascites is noted in the upper abdomen. There is a small hiatal hernia. Skeletal structures: The skeletal structures are osteopenic. The bony thorax is grossly intact. Note that evaluation for rib fractures is significant degraded by motion artifact. Degenerative change and hyperkyphosis is noted in the thoracic spine. No lytic or blastic bony lesions are seen. IMPRESSION: 1. Streak and motion compromised examination. 2. No acute posttraumatic intrathoracic abnormality is identified. 3. Marked cardiomegaly. 4. Right larger than left pleural effusions with associated atelectasis. 5. Perihepatic ascites is seen in the upper abdomen. 6. Additional findings as above. ACT 112: Negative or not required by law. Electronically signed by: Curt Bradley M.D. 08/22/2021 8:51 AM Hospital Course (1) Sepsis: patient presented after being found down presumably a fall at [facility], unwitnessed. CT head on admission without evidence for CVA pH 7.1, pCO2 30 on VBG. INR>10. Hyponatremia/hyperkalemia, Anion gap metabolic acidosis, lactic elevated 13.6 CT chest with no acute post-traumatic intrathoracic abn but marked cardiomegaly and R>L pleural effusions with associated atelectasis and perihepatic ascites in upper abdomen CTAP with no traumatic acute abn but noted anasaraca and mild intraperitoneal fluid, possibly secondary to CHF --> Prior echo mar 2021 in patient with hx ischemic cardiomyopathy showed moderately decreased LV function (EF 35%), mild AR, moderate mitral stenosis with moderate MR. no change compared to prior apr 2019 imaging Urine cx/blood cx obtained on admission --> suspect combination of possible lactic acidosis from metformin along with progressive CHF/hypotension due to volume overload +/- any arrhythmia that may have occurred when heart under such duress, leading to current state, as well as possible UTI (UA with WBC/2+ bacteria, also noted amorphous sediment likely 2nd to ATN from possible hypotension/fall which brought her to hospital) Lengthy discussion with admitting provider and family regarding aggressive treatment/diuretics/dialysis/respiratory decline/intubation/thoracentesis/etc and they stated patient had been declining over years and would rather opt with comfort approach. Pain control/anxiolytics prn Hypoglycemic, and was corrected -- had moment of clarity/talking with family at bedside before becoming agitated, getting morphine and passing away comfortably with family at bedside (2) Severe sepsis: (3) Comfort measures only status: (4) Acute metabolic encephalopathy: (5) Elevated INR: (6) Cardiomyopathy, dilated, nonischemic: (7) Paroxysmal A-fib: (8) CHF (congestive heart failure): (9) Hypoglycemia: (10) Lactic acidosis: (11) DANAY (acute kidney injury): (12) Anemia: Total Time Total Time Spent Total Time Spent (In Minutes): 45 Discharge Plan Discharge Items Patient Disposition: Other Date/Time: 08/22/21 08:51 Supervising Physician Co-Signing Physician Notes Attending Attestation: Chart reviewed prior to pt's passing, and care plan prior to pt's was discussed with LAKISHA Alfaro. I agree with the miguel components of Ms Alfaro's documentation. 86yo female with chronic systolic CHF, dementia, PAF on coumadin who presented with altered MS, obtundation, hypoglycemia, acute renal failure, profound lactic acidosis, coagulopathy, and concerns for severe sepsis. Patient was DNR/DNI, and given the severity of her presenting illness, discussions were held with her family. Patient was ultimately made comfort care measures and passed just a few short hours later. Patient was pronounced by LAKISHA Alfaro. Vinod Hernandez MD Coding Level of Care Code D/C DAY MANAGEMENT >30 MINS Diagnoses Sepsis A41.9 Acute metabolic encephalopathy G93.41 Elevated INR R79.1 Cardiomyopathy, dilated, nonischemic I42.0 Paroxysmal A-fib I48.0 CHF (congestive heart failure) I50.9 Severe sepsis A41.9; R65.20 Hypoglycemia E16.2 Comfort measures only status Z51.5 Lactic acidosis E87.2 DANAY (acute kidney injury) N17.9 Anemia D64.9 Anemia type: unspecified type
== END 2021-08-22 10:00 | disposition expired | DRG 951 ==
LOC: ED 21:31 → SUATTDRO 08-22 01:45 → 3E 08-22 01:45